=== PATIENT | female | born 1945 | race Caucasian/White ===

== ENCOUNTER → 2016-10-01 | Outpatient (CLI) | payer BC ==
[~2016-10-01] MED LIST: ALPHA LIPOIC ACID PO; CALC1TAB9 PO; COEN100C15 PO; LEVO125T7 PO; MULTTAB58 PO; SPIR25TA PO; UBIQ1CAP8 PO; krill oil PO
[2016-10-01 11:34] LABS: THYROID STIMULATING HORMONE 0.035 uIu/ml (0.300-4.500)
== END | disposition home or self-care (01) ==
LOC: C.LAB1850 09:51
PROVIDERS: ATTEND Nurse Practitioner Family
DX: E03.9 Hypothyroidism, unspecified (principal)

== ENCOUNTER → 2016-10-21 | Outpatient (CLI) | payer BC ==
[2016-10-21 09:46] LABS: BLOOD UREA NITROGEN 23 mg/dl (7-18); BUN/CREATININE RATIO 17.8 (10-20); CALCIUM 9.8 mg/dl (8.5-10.1); CARBON DIOXIDE 26 mmol/L (21-32); CHLORIDE 108 mmol/L (98-107); GLUCOSE 81 mg/dl (70-99); MAGNESIUM 2.2 mg/dl (1.8-2.4); POTASSIUM 3.8 mmol/L (3.5-5.1); SODIUM 143 mmol/L (136-145)
[2016-10-21 09:48] LABS: PHOSPHORUS 3.2 mg/dl (2.5-4.9)
[2016-10-21 10:03] LABS: URINE PROTIEN/CREAT RATIO 0.1 (0-0.2); URINE TOTAL PROTEIN 5.9 mg/dl (0-11.9)
[2016-10-21 10:10] LABS: URINE APPEARANCE CLEAR (CLEAR); URINE BILIRUBIN NEG (NEG); URINE COLOR YELLOW; URINE EPITHELIAL CELL AUTO 0-5 /lpf (0-5); URINE NITRITE NEG (NEG); URINE PH 6.5 (4.5-7.5); URINE SPECIFIC GRAVITY 1.007 (1.000-1.030); UROBILINOGEN NEG (NEG); ZZUR CULT IF INDIC CLEAN CATCH NO
[2016-10-21 10:11] LABS: MANUAL MICROSCOPIC REQUIRED? NO; REVIEW REQ? NO
== END | disposition home or self-care (01) ==
LOC: C.LAB1850 07:13
PROVIDERS: ATTEND Internal Medicine Nephrology
DX: N18.3 Chronic kidney disease, stage 3 (moderate) (principal)

== ENCOUNTER → 2016-12-10 | Outpatient (CLI) | payer BC | END | disposition home or self-care (01) | LOC: C.PAPS 11:35 | PROVIDERS: ATTEND Obstetrics & Gynecology | DX: Z01.419 Encounter for gynecological examination (general) (routine) without abnormal findings (principal) ==

== ENCOUNTER → 2017-01-09 | Outpatient (CLI) | payer BC ==
[2017-01-09 09:54] LABS: CALCIUM 9.8 mg/dl (8.5-10.1)
[2017-01-09 09:55] LABS: ALB/GLOB RATIO 1.3 (0.9-2); ALT/SGPT 22 U/L (12-78); AST/SGOT 15 U/L (15-37); BLOOD UREA NITROGEN 27 mg/dl (7-18); CARBON DIOXIDE 26 mmol/L (21-32); CHLORIDE 110 mmol/L (98-107); CHOLESTEROL 222 mg/dl (0-200); GLUCOSE 80 mg/dl (70-99); POTASSIUM 3.8 mmol/L (3.5-5.1); SODIUM 143 mmol/L (136-145); TRIGLYCERIDES 97 mg/dl (0-150); VERY LOW DENSITY LIPOPROT CALC 19 mg/dl
[2017-01-09 10:06] LABS: ALKALINE PHOSPHATASE 53 U/L (45-117); CHOLESTEROL/HDL RATIO 3.4; HDL CHOLESTEROL 65 mg/dl; LDL CHOLESTEROL CALCULATED 138 mg/dl; THYROID STIMULATING HORMONE 0.048 uIu/ml (0.300-4.500)
== END | disposition home or self-care (01) ==
LOC: C.LAB1850 07:53
PROVIDERS: ATTEND Nurse Practitioner Family
DX: E03.9 Hypothyroidism, unspecified (principal)

== ENCOUNTER → 2017-01-26 | Outpatient (CLI) | payer BC ==
--- NOTE | 2017-01-30 12:38 | CODING QUERY MEDICAL NECESSITY ---
CQSUPPORTING DIAGNOSIS NEEDED A supporting diagnosis is required for the test/procedure performed on this patient in order for us to be reimbursed by the patient's insurance. Please provide a supporting diagnosis for the following test/procedure listed below next to the test name along with your signature. *If there is no additional diagnosis for this patient that would support the following test/procedure please document that below next to the test/procedure. Test(s)/Procedure(s) that require a supporting diagnosis: DOS 01/26/17 [employer] [employer] STUDIES Provider Signature: Date: Thank you Sharon Hines [facility] Information Management Once completed, please kindly fax back to [phone] For questions please call [phone]
== END | disposition home or self-care (01) ==
LOC: C.MAMM 09:30
PROVIDERS: ATTEND Nurse Practitioner Family
DX: Z13.820 Encounter for screening for osteoporosis (principal); N18.3 Chronic kidney disease, stage 3 (moderate)

== ENCOUNTER → 2017-10-09 | Outpatient (CLI) | payer BC | END | disposition home or self-care (01) | LOC: C.PATHSPEC 13:12 | PROVIDERS: ATTEND Dermatology | DX: C44.619 Basal cell carcinoma of skin of left upper limb, including shoulder (principal); D04.72 Carcinoma in situ of skin of left lower limb, including hip ==

== ENCOUNTER → 2017-10-22 | Outpatient (CLI) | payer BC ==
[2017-10-22 09:42] LABS: BASO % 0.3 %; BASO ABS # 0.02 K/uL (0-0.2); EOS % 2.1 %; EOS ABS # 0.13 K/uL (0-0.5); HEMATOCRIT 45.1 % (37-47); HEMOGLOBIN 15.2 g/dL (12.0-16.0); IG# 0.01 K/uL (0.00-0.02); LYMPH % 41.7 %; LYMPH ABS # 2.53 K/uL (1.2-3.4); MEAN CELL VOLUME 90.7 fL (80-100); MEAN CORPUSCULAR HEMOGLOBIN 30.6 pg (25-34); MEAN CORPUSCULAR HGB CONC 33.7 g/dl (32-36); MEAN PLATELET VOLUME 11.6 fL (7.4-10.4); MONO % 7.8 %; MONO ABS # 0.47 K/uL (0.11-0.59); NEUT % 47.9 %; PLATELET COUNT 179 K/uL (130-400); RED CELL DISTRIBUTION WIDTH CV 13.2 % (11.5-14.5); RED CELL DISTRIBUTION WIDTH SD 42.8 fL (36.4-46.3); WHITE BLOOD COUNT 6.06 K/uL (4.8-10.8)
[2017-10-22 10:07] LABS: BLOOD UREA NITROGEN 19 mg/dl (7-18); CALCIUM 9.8 mg/dl (8.5-10.1); CARBON DIOXIDE 29 mmol/L (21-32); CREATININE 1.21 mg/dl (0.60-1.20); GLUCOSE 90 mg/dl (70-99); PHOSPHORUS 3.1 mg/dl (2.5-4.9); POTASSIUM 3.6 mmol/L (3.5-5.1); SODIUM 140 mmol/L (136-145)
== END | disposition home or self-care (01) ==
LOC: C.LAB1850 07:58
PROVIDERS: ATTEND Internal Medicine Nephrology
DX: N18.3 Chronic kidney disease, stage 3 (moderate) (principal)

== ENCOUNTER → 2017-10-28 | Outpatient (CLI) | payer BC | END | disposition home or self-care (01) | LOC: C.PATHSPEC 17:26 | PROVIDERS: ATTEND Plastic Surgery | DX: C44.729 Squamous cell carcinoma of skin of left lower limb, including hip (principal) ==

== ENCOUNTER → 2018-01-18 | Outpatient (CLI) | payer BC ==
[2018-01-18 10:03] LABS: ALBUMIN 4.1 gm/dl (3.4-5.0); ALT/SGPT 21 U/L (12-78); AST/SGOT 17 U/L (15-37); BLOOD UREA NITROGEN 20 mg/dl (7-18); CALCIUM 9.4 mg/dl (8.5-10.1); CARBON DIOXIDE 29 mmol/L (21-32); CHOLESTEROL 221 mg/dl (0-200); CREATININE 1.14 mg/dl (0.60-1.20); GLUCOSE 84 mg/dl (70-99); POTASSIUM 3.6 mmol/L (3.5-5.1); SODIUM 143 mmol/L (136-145)
[2018-01-18 10:07] LABS: ALKALINE PHOSPHATASE 53 U/L (45-117); LDL CHOLESTEROL CALCULATED 128 mg/dl; TOTAL PROTEIN 7.4 gm/dl (6.4-8.2)
== END | disposition home or self-care (01) ==
LOC: C.LAB1850 07:27
PROVIDERS: ATTEND Nurse Practitioner Family
DX: E03.9 Hypothyroidism, unspecified (principal); E78.00 Pure hypercholesterolemia, unspecified; N18.3 Chronic kidney disease, stage 3 (moderate)

== ENCOUNTER 2020-07-30 11:44 | Inpatient (IN) ==
[2020-07-30] MEDS ORDERED: SODIUM CHLORIDE 0.9% 500 ML IV ONE (12:22)
[2020-07-30] MEDS ORDERED: MAGNESIUM SULFATE / D5W 1 GM/100 ML BAG IV STA (12:22)
[2020-07-30] MEDS ORDERED: niCARdipine 25 MG in SODIUM CHLORIDE 0.9% 240 ML IV PRN (12:22)
[2020-07-30] MEDS ORDERED: OPTIRAY 320 125ml IV ONE (12:31)
[2020-07-30 12:33] LABS: Basophils # (auto) 0.01 K/uL (0-0.2); Basophils % (auto) 0.1 %; Eosinophils # (auto) 0.06 K/uL (0-0.5); Eosinophils % (auto) 0.9 %; Hematocrit (blood only) 45.1 % (37-47); Hemoglobin 15.1 g/dL (12.0-16.0); Immature Granulocytes # (auto) 0.01 K/uL (0.00-0.02); Immature Granulocytes % (auto) 0.1 %; Lymphocytes # (auto) 2.16 K/uL (1.2-3.4); Lymphocytes % (auto) 32.3 %; Mean Corpuscular Hemoglobin 31.1 pg (25-34); Mean Corpuscular Hgb Conc 33.5 g/dL (32-36); Mean Corpuscular Volume 92.8 fL (80-100); Mean Platelet Volume 11.1 fL (7.4-10.4); Monocytes # (auto) 0.47 K/uL (0.11-0.59); Neutrophils # (auto) 3.98 K/uL (1.4-6.5); Neutrophils % (auto) 59.6 %; Platelet Count 180 K/uL (130-400); RDW Coefficient of Variation 12.9 % (11.5-14.5); RDW Standard Deviation 43.8 fL (36.4-46.3); Red Blood Count 4.86 M/uL (4.2-5.4); White Blood Count 6.69 K/uL (4.8-10.8)
--- NOTE | 2020-07-30 12:39 | CT Scan Report ---
CT head/brain wo con CLINICAL HISTORY: 75 years-old Female with Stroke evaluation . Acute strokelike symptoms TECHNIQUE: Multiple axial CT images of the head were obtained without contrast. A dose lowering tech nique was utilized adhering to the principles of ALARA. CT DOSE: 1169.03 mGy.cm COMPARISON: CTA head neck of same day FINDINGS: No acute intracranial hemorrhage, midline shift, intracranial mass, hydrocephalus, territorial ischem ia or abnormal extra-axial collection. Confluent white matter hypodensities suggest chronic microvasc ular ischemic disease. The calvarium is intact. The paranasal sinuses, mastoid air cells, and middle ear cavities are clear . IMPRESSION: No acute intracranial abnormality. ACT 112: Negative or not required by law. The above report was generated using voice recognition software. It may contain grammatical, syntax o r spelling errors. Electronically signed by: Paul Rodriguez M.D. 07/30/2020 12:38 PM
[2020-07-30 12:48] LABS: Partial Thromboplastin Time 27.9 Seconds (21.0-31.0); Prothrombin Time 10.9 Seconds (9.0-12.0)
--- NOTE | 2020-07-30 12:52 | CT Scan Report ---
CT angio neck with con, CT angio head w con CLINICAL HISTORY: 75 years-old Female with Stroke evaluation. Acute strokelike symptoms COMPARISON STUDY: Head CT of same day, brain MRI 12/29/2008 TECHNIQUE: Following the IV administration of 120 mL of Optiray 320, CT angiogram of the neck was per formed from the aortic arch to the skull base. Images are reviewed in the axial, sagittal, and soriano l planes. 3-D MIPS images are created and assessed. IV contrast was administered without complication . All measurements were calculated based on NASCET criteria. A dose lowering technique was utilized adhering to the principles of ALARA. FINDINGS: The imaged opacified pulmonary arterial tree is unremarkable. Three-vessel morphology of the thoracic aortic arch. Patent innominate and imaged subclavian arteries. Patent common and internal carotid ar teries. There is mild mixed plaque of the left carotid bulb and proximal left ICA without high-grade stenosis. There is beaded irregularity with mild luminal narrowing involving the distal cervical segm ents of the left greater than right internal carotid arteries the level of C2. The internal carotid a rteries are otherwise unremarkable and widely patent. There is minimal fusiform dilation of the mid M 1 segment measuring 4 mm on image 89 series 5 without definite aneurysm identified. The bilateral mid dle and right anterior cerebral arteries are unremarkable. Hypoplastic left A1 segment, likely develo pmental. Codominant and widely patent vertebral arteries. There is tortuosity of the distal V2 segmen ts. The basilar artery is patent. There is mild luminal narrowing at the origin of the right P1 segme nt. The bilateral posterior cerebral arteries are otherwise widely patent. origin of the left p osterior cerebral artery. Cerebral venous sinuses are patent. No abnormal intracranial enhancement. Lung apices are clear. No pneumothorax. 1.5 cm heterogeneous nodule of the posterior left thyroid. Un remarkable soft tissues. No acute fracture. Indeterminate 1.0 cm sclerotic focus involves the posteri or left fifth rib. IMPRESSION: 1. No saccular aneurysm, high-grade stenosis, dissection or proximal branch occlusion. 2. Mild mixed plaque of the left carotid bulb results in less than 50% luminal narrowing. 3. Beaded irregularity with mild luminal narrowing involves the distal cervical segments of the left greater than right internal carotid arteries at the level of C2. 4. origin of the left posterior cerebral artery. ACT 112: Negative or not required by law. The above report was generated using voice recognition software. It may contain grammatical, syntax o r spelling errors. Electronically signed by: Paul Rodriguez M.D. 07/30/2020 12:51 PM
[2020-07-30 12:54] LABS: Alanine Aminotransferase 27 U/L (12-78); Albumin Level 4.1 gm/dl (3.4-5.0); Aspartate Aminotransferase 16 U/L (15-37); BUN Creatinine Ratio 15.7 (10-20); Blood Urea Nitrogen 23 mg/dl (7-18); Calcium 10.2 mg/dl (8.5-10.1); Carbon Dioxide 27 mmol/L (21-32); Chloride 110 mmol/L (98-107); Creatinine Clr Calc Pharmacy 33.2 ml/min; Est GFR (African American) 40.3; Est GFR (Non-African American) 34.8; Glucose 90 mg/dl (70-99); Magnesium 2.5 mg/dl (1.8-2.4); Potassium 3.7 mmol/L (3.5-5.1); Sodium 140 mmol/L (136-145)
[2020-07-30] MEDS ORDERED: ASPIRIN CHEW 324 MG PO STA (12:58)
[2020-07-30 12:59] LABS: Albumin Globulin Ratio 1.1 (0.9-2); Alkaline Phosphatase 59 U/L (45-117); Bilirubin,Total 0.6 mg/dl (0.2-1); Globulin 3.9 gm/dl (2.5-4.0); Troponin I < 0.015 ng/ml (0-0.045)
[2020-07-30] MEDS ORDERED: TPA for Stroke IV STA (13:13)
--- NOTE | 2020-07-30 13:13 | Emergency Department Note ---
History of Present Illness General Chief complaint: Visual Disturbance Stated complaint: losing vision in left eye Time Seen by Provider: 07/30/20 12:13 Source: patient, RN notes reviewed and old records reviewed Mode of arrival: ambulatory Limitations: no limitations History of Present Illness Provider complaint: left sided vision loss Onset (ago): hour(s) less than 1 Location: eyes Associated symptoms: + denies other symptoms This 75-year-old female who presents emergency department over concerns that she had a sudden loss of vision in her left eye. Patient [place] 1 hour ago when she had the sudden loss of vision. The patient reports she is on 2 blood pressure medications although she does not know the names of them. (Clonidine and spironolactone.) Patient reports she cannot see the periphery on the left side of her visual field. She denies any other issues including weakness to the arms and legs. Patient is concerned because she has a history of chronic kidney disease and does not want to have the IV dye for CTA of the head. Home Medications Medication Instructions Recorded Confirmed Type calcium citrate 250 mg 1 tab PO TID 02/24/19 07/30/20 History calcium-vitamin D3 5 mcg (200 unit) tablet krill oil 500 mg capsule 500 mg PO TID cap 02/24/19 07/30/20 History coenzyme Q10 100 mg capsule 100 mg PO QPM cap 05/10/19 07/30/20 History toqcsjjfkngs-Ax-ovcl-minerals 1 tab PO QAM tab 05/10/19 07/30/20 History spironolactone 25 mg tablet 25 mg PO BID #180 tab 03/21/20 07/30/20 Rx clonidine HCl 0.3 mg PO QPM 07/30/20 07/30/20 History levothyroxine 88 mcg PO QAM 07/30/20 07/30/20 History Allergies Allergy/AdvReac Type Severity Reaction Status Date / Time ciprofloxacin [From Cipro] Allergy Verified 07/30/20 14:16 clindamycin Allergy Rash Verified 07/30/20 14:16 codeine Allergy Irritabilit Verified 07/30/20 14:16 y latex Allergy Verified 07/30/20 14:16 bacitracin [From Polysporin] AdvReac Verified 07/30/20 14:16 Past Med/Surg History Medical History (Updated 07/30/20 @ 17:58 by Christopher Gore MD) Basal cell carcinoma Benign colonic polyp Benign secondary hypertension Hypercholesterolemia Hypothyroidism Postmenopausal bleeding Primary aldosteronism SNHL (sensorineural hearing loss) Stage III chronic kidney disease Surgical History History of colonoscopy with polypectomy History of excision of lesion (~2014) scalp-benign Family History Aunt Breast cancer paternal aunt Ovarian cancer maternal aunt Uncle Colorectal cancer maternal uncle Brother Hemochromatosis Sister Ovarian cancer Mother Stroke Denies family history of Prostate cancer Myocardial infarction Social History Smoking Status: Never smoker Second Hand Exposure: No; Hx Alcohol Use: No Hx Substance Use: No Preferred Language: Turkish Communication Ability: Effective marital status: Current Living Situation: Spouse current occupational status: retired Feels Safe at Home: Yes Childhood Exposure to Second-Hand Smoke: No Dental Care, Regularly: Yes Physical Activity Frequency: 3-4 Times per Week Seatbelt Use: always Sunscreen Use: Yes Review of Systems A total of 10 systems reviewed and were otherwise negative Physical Exam Vital Signs Vital Signs - 24 hr 07/30/20 11:49 07/30/20 12:15 07/30/20 12:40 Temperature 36.5 C Temperature Source Oral Pulse Rate 74 72 75 Pulse Rate from SpO2 Sensor 72 75 Respiratory Rate 20 21 16 Respiratory Effort / Characteristics Non-Labored Spontaneous Respiratory Depth Normal Blood Pressure 190/120 H Blood Pressure [Left Arm] Blood Pressure Mean 143 Blood Pressure Mean [Left Arm] Blood Pressure Position Sitting Blood Pressure Position [Left Arm] Pulse Oximetry 98 100 99 Oxygen Delivery Method Room Air Room Air Room Air Sepsis Recent Fever Within 48 Hours No Sepsis New/Unexplained Change in Mental Status N/A Sepsis Action Taken by Nursing No Action Required 07/30/20 12:49 07/30/20 12:50 07/30/20 13:00 Temperature Temperature Source Pulse Rate 86 79 72 Pulse Rate from SpO2 Sensor 87 78 71 Respiratory Rate 21 21 20 Respiratory Effort / Characteristics Respiratory Depth Blood Pressure 217/102 H Blood Pressure [Left Arm] Blood Pressure Mean 157 Blood Pressure Mean [Left Arm] Blood Pressure Position Blood Pressure Position [Left Arm] Pulse Oximetry 99 98 99 Oxygen Delivery Method Room Air Room Air Room Air Sepsis Recent Fever Within 48 Hours Sepsis New/Unexplained Change in Mental Status Sepsis Action Taken by Nursing 07/30/20 13:01 07/30/20 13:11 07/30/20 13:14 Temperature Temperature Source Pulse Rate 72 84 78 Pulse Rate from SpO2 Sensor 71 84 79 Respiratory Rate 22 22 23 Respiratory Effort / Characteristics Respiratory Depth Blood Pressure 190/103 H 196/90 H 183/104 H Blood Pressure [Left Arm] Blood Pressure Mean 143 141 121 Blood Pressure Mean [Left Arm] Blood Pressure Position Blood Pressure Position [Left Arm] Pulse Oximetry 98 98 97 Oxygen Delivery Method Room Air Sepsis Recent Fever Within 48 Hours Sepsis New/Unexplained Change in Mental Status Sepsis Action Taken by Nursing 07/30/20 13:15 07/30/20 13:17 07/30/20 13:20 Temperature Temperature Source Pulse Rate 76 76 77 Pulse Rate from SpO2 Sensor 76 76 77 Respiratory Rate 22 20 19 Respiratory Effort / Characteristics Respiratory Depth Blood Pressure 176/103 H 162/98 H Blood Pressure [Left Arm] Blood Pressure Mean 116 120 Blood Pressure Mean [Left Arm] Blood Pressure Position Blood Pressure Position [Left Arm] Pulse Oximetry 98 97 98 Oxygen Delivery Method Room Air Sepsis Recent Fever Within 48 Hours Sepsis New/Unexplained Change in Mental Status Sepsis Action Taken by Nursing 07/30/20 13:25 07/30/20 13:33 07/30/20 13:35 Temperature Temperature Source Pulse Rate 81 87 79 Pulse Rate from SpO2 Sensor 82 Respiratory Rate 22 23 24 Respiratory Effort / Characteristics Respiratory Depth Blood Pressure 167/93 H 159/102 H 173/93 H Blood Pressure [Left Arm] Blood Pressure Mean 123 131 136 Blood Pressure Mean [Left Arm] Blood Pressure Position Blood Pressure Position [Left Arm] Pulse Oximetry 99 Oxygen Delivery Method Room Air Room Air Room Air Sepsis Recent Fever Within 48 Hours Sepsis New/Unexplained Change in Mental Status Sepsis Action Taken by Nursing 07/30/20 13:37 07/30/20 13:45 07/30/20 13:48 Temperature Temperature Source Pulse Rate 79 77 Pulse Rate from SpO2 Sensor Respiratory Rate 24 26 H Respiratory Effort / Characteristics Respiratory Depth Blood Pressure 159/100 H Blood Pressure [Left Arm] 149/75 H Blood Pressure Mean 108 Blood Pressure Mean [Left Arm] 99 Blood Pressure Position Blood Pressure Position [Left Arm] Lying Pulse Oximetry Oxygen Delivery Method Room Air Room Air Sepsis Recent Fever Within 48 Hours Sepsis New/Unexplained Change in Mental Status Sepsis Action Taken by Nursing 07/30/20 13:51 07/30/20 14:00 07/30/20 14:02 Temperature Temperature Source Pulse Rate 80 76 Pulse Rate from SpO2 Sensor Respiratory Rate 19 17 Respiratory Effort / Characteristics Respiratory Depth Blood Pressure 149/75 H 142/84 H Blood Pressure [Left Arm] 163/104 H Blood Pressure Mean 109 110 Blood Pressure Mean [Left Arm] 123 Blood Pressure Position Blood Pressure Position [Left Arm] Pulse Oximetry Oxygen Delivery Method Room Air Room Air Sepsis Recent Fever Within 48 Hours Sepsis New/Unexplained Change in Mental Status Sepsis Action Taken by Nursing 07/30/20 14:04 07/30/20 14:10 07/30/20 14:15 Temperature Temperature Source Pulse Rate 81 85 83 Pulse Rate from SpO2 Sensor Respiratory Rate 21 19 20 Respiratory Effort / Characteristics Respiratory Depth Blood Pressure 163/104 H 171/79 H Blood Pressure [Left Arm] Blood Pressure Mean 151 99 Blood Pressure Mean [Left Arm] Blood Pressure Position Blood Pressure Position [Left Arm] Pulse Oximetry Oxygen Delivery Method Room Air Room Air Room Air Sepsis Recent Fever Within 48 Hours Sepsis New/Unexplained Change in Mental Status Sepsis Action Taken by Nursing 07/30/20 14:22 07/30/20 14:30 07/30/20 14:33 Temperature Temperature Source Pulse Rate Pulse Rate from SpO2 Sensor Respiratory Rate 23 20 Respiratory Effort / Characteristics Respiratory Depth Blood Pressure 141/90 H 142/75 H Blood Pressure [Left Arm] 141/90 H 155/79 H Blood Pressure Mean 115 98 Blood Pressure Mean [Left Arm] 107 104 Blood Pressure Position Blood Pressure Position [Left Arm] Lying Lying Pulse Oximetry Oxygen Delivery Method Room Air Room Air Sepsis Recent Fever Within 48 Hours Sepsis New/Unexplained Change in Mental Status Sepsis Action Taken by Nursing 07/30/20 14:34 07/30/20 14:40 07/30/20 14:44 Temperature Temperature Source Pulse Rate Pulse Rate from SpO2 Sensor Respiratory Rate 20 19 29 H Respiratory Effort / Characteristics Non-Labored Respiratory Depth Blood Pressure 155/79 H 152/80 H Blood Pressure [Left Arm] 151/76 H Blood Pressure Mean 102 103 Blood Pressure Mean [Left Arm] 101 Blood Pressure Position Blood Pressure Position [Left Arm] Lying Pulse Oximetry 98 Oxygen Delivery Method Room Air Room Air Sepsis Recent Fever Within 48 Hours Sepsis New/Unexplained Change in Mental Status Sepsis Action Taken by Nursing 07/30/20 14:45 07/30/20 14:46 07/30/20 14:50 Temperature Temperature Source Pulse Rate Pulse Rate from SpO2 Sensor 78 Respiratory Rate 20 19 26 H Respiratory Effort / Characteristics Respiratory Depth Blood Pressure 151/76 H 141/75 H Blood Pressure [Left Arm] Blood Pressure Mean 94 101 Blood Pressure Mean [Left Arm] Blood Pressure Position Blood Pressure Position [Left Arm] Pulse Oximetry 98 Oxygen Delivery Method Room Air Room Air Room Air Sepsis Recent Fever Within 48 Hours Sepsis New/Unexplained Change in Mental Status Sepsis Action Taken by Nursing VITAL SIGNS - Vital signs and nursing notes were reviewed. GENERAL - 75-year-old female appearing stated age who is in no acute distress. Communicates well with provider and answers questions appropriately. SKIN - Without rashes. HEAD - NC/AT. EYES - PERRL with EOMI bilaterally. Sclera anicteric. Palpebral conjunctiva pink and moist with no injection noted. EARS - No deformities of external structures noted on gross examination bilaterally. No pain elicited with palpation of the tragus bilaterally. External auditory canals without discharge or otorrhea. Tympanic membranes pearly saleem without retraction or bulging. No fluid or purulent material visualized behind the TM. Handle of malleus, umbo, cone of light, pars tensa/flaccid all easily visualized. NOSE - Midline and without cyanosis. No epistaxis or purulent drainage noted. Septum midline without deviation or septal hematoma noted. MOUTH/OROPHARYNX - Without perioral cyanosis. Buccal mucosa pink and moist and without leukoplakia. Tongue midline with equal elevation of palate bilaterally. No tonsillar hypertrophy, erythema, or exudates noted. dentition noted. NECK - Neck with FROM. Supple to palpation. lymphadenopathy noted. No nuchal rigidity. LUNGS - Chest wall symmetric without accessory muscle use, intercostals retractions, or central cyanosis. Normal vesicular breath sounds CTA B/L. No wheezes, rales, or rhonchi appreciated. CARDIAC - RRR with S1/S2. No murmur, rubs, or gallops appreciated. ABDOMEN - Abdominal contour without pulsations or visible masses. BS normoactive all four quadrants. No tenderness, palpable masses, hepatosplenomegaly, or ascites noted. EXTREMITIES - No clubbing or peripheral cyanosis. No pretibial edema present. +3/5 radial, posterior tibial, and dorsalis pedis pulses palpated throughout. +5/5 strength noted in UE/LE bilaterally. NEUROLOGIC - Cranial nerves II through XII grossly intact. Sensory intact to light touch throughout. Patellar reflexes +2/4. PSYCH - A&Ox3 and cooperates fully with examiner. Pt is very pleasant and interacts well with examiner. Course Administered Medications Discontinued Medications Alteplase, Recombinant (Tpa For Stroke) 1 ea IV NOW STA; Protocol Stop: 07/30/20 13:14 Last Admin: 07/30/20 16:43 Dose: Not Given Documented by: [id number] Aspirin (Aspirin Chew 324 Mg) 324 mg PO NOW STA Stop: 07/30/20 12:59 Last Admin: 07/30/20 14:52 Dose: Not Given Documented by: [id number] Magnesium Sulfate/Dextrose (Magnesium Sulfate / D5w) 1 gm in 100 mls @ 100 mls/hr IV NOW STA Stop: 07/30/20 13:21 Last Admin: 07/30/20 14:52 Dose: Not Given Documented by: [id number] Nicardipine HCl 25 mg/ Sodium (Chloride) 250 mls @ 50 mls/hr IV .Q5H PRN; Protocol PRN Reason: SBP above 185 or DBP above 110 Stop: 08/29/20 12:21 Last Admin: 07/30/20 13:07 Dose: 5 mg/hr, 50 mls/hr Documented by: [id number] Cosigned by: [id number] Sodium Chloride (Nss) 500 mls @ 999 mls/hr IV .Q31M ONE Stop: 07/30/20 12:52 Last Infusion: 07/30/20 14:45 Dose: 0 mls/hr Documented by: [id number] Admin: 07/30/20 13:05 Dose: 999 mls/hr Documented by: [id number] Alteplase, Recombinant 6.4 mg/ (Syringe) 6.4 mls @ 6.4 mls/min IV ONCE ONE Stop: 07/30/20 13:24 Last Admin: 07/30/20 13:33 Dose: 6.4 mls/min Documented by: [id number] Cosigned by: [id number] Alteplase, Recombinant 57 mg/ (EMPTY BAG) 57 mls @ 57 mls/hr IV ONCE ONE Stop: 07/30/20 13:25 Last Infusion: 07/30/20 14:44 Dose: 0 mls/hr Documented by: [id number] Cosigned by: [id number] Admin: 07/30/20 13:34 Dose: 57 mls/hr Documented by: [id number] Cosigned by: [id number] Ioversol (Optiray 320 125ml) 120 ml IV ONCE ONE Stop: 07/30/20 12:32 Last Admin: 07/30/20 12:31 Dose: 120 ml Documented by: [id number] Critical Care Time I have personally spent greater than 90 minutes of critical care time in the direct management of this patient. This includes bedside care, interpretation of diagnostic studies, and testing, discussion with consultants, patient, and family members, and other required patient management activities. This 90 minutes is in excess of all separately billable procedures. Medical Decision Making Differential Diagnosis Infection, dehydration, metabolic abnormality, hypo/hyperglycemia, electrolyte disturbance, anemia, hypoxia, cardiac sources, intracerebral event, toxicologic, neurologic, as well as other pathologies. Medical Records Attestation: I reviewed the patient's medical records. Home Medications Current Medication List: was personally reviewed by me Laboratory Data Attestation: I reviewed the patient's lab results. Result diagrams: 07/30/20 12:15 07/30/20 12:15 Lab Results 07/30/20 07/30/20 07/30/20 Range/Units 12:15 12:15 12:15 WBC 6.69 (4.8-10.8) K/uL RBC 4.86 (4.2-5.4) M/uL Hgb 15.1 (12.0-16.0) g/dL Hct 45.1 (37-47) % MCV 92.8 (80-100) fL MCH 31.1 (25-34) pg MCHC 33.5 (32-36) g/dL RDW Std Deviation 43.8 (36.4-46.3) fL RDW Coeff of Beth 12.9 (11.5-14.5) % Plt Count 180 (130-400) K/uL MPV 11.1 H (7.4-10.4) fL Immature Gran % (Auto) 0.1 % Neut % (Auto) 59.6 % Lymph % (Auto) 32.3 % Eagle % (Auto) 7.0 % Eos % (Auto) 0.9 % Baso % (Auto) 0.1 % Neut # (Auto) 3.98 (1.4-6.5) K/uL Lymph # (Auto) 2.16 (1.2-3.4) K/uL Eagle # (Auto) 0.47 (0.11-0.59) K/uL Eos # (Auto) 0.06 (0-0.5) K/uL Baso # (Auto) 0.01 (0-0.2) K/uL Immature Gran # (Auto) 0.01 (0.00-0.02) K/uL PT 10.9 (9.0-12.0) Seconds INR 1.0 (0.9-1.1) APTT 27.9 (21.0-31.0) Seconds PTT Ratio 1.0 Sodium 140 (136-145) mmol/L Potassium 3.7 (3.5-5.1) mmol/L Chloride 110 H (98-107) mmol/L Carbon Dioxide 27 (21-32) mmol/L Anion Gap 3.0 (3-11) BUN 23 H (7-18) mg/dl Creatinine 1.48 H (0.6-1.2) mg/dl Est Cr Clr Drug Dosing 33.2 ml/min Est GFR ( Amer) 40.3 Est GFR (Non-Af Amer) 34.8 BUN/Creatinine Ratio 15.7 (10-20) Glucose 90 (70-99) mg/dl Calcium 10.2 H (8.5-10.1) mg/dl Magnesium 2.5 H (1.8-2.4) mg/dl Total Bilirubin 0.6 (0.2-1) mg/dl AST 16 (15-37) U/L ALT 27 (12-78) U/L Alkaline Phosphatase 59 (45-117) U/L Troponin I < 0.015 (0-0.045) ng/ml Total Protein 8.0 (6.4-8.2) gm/dl Albumin 4.1 (3.4-5.0) gm/dl Globulin 3.9 (2.5-4.0) gm/dl Albumin/Globulin Ratio 1.1 (0.9-2) COVID-19 Eval Order SARS-CoV-2, RNA, NAAT (NEGATIVE) 07/30/20 07/30/20 Range/Units 13:26 13:26 WBC (4.8-10.8) K/uL RBC (4.2-5.4) M/uL Hgb (12.0-16.0) g/dL Hct (37-47) % MCV (80-100) fL MCH (25-34) pg MCHC (32-36) g/dL RDW Std Deviation (36.4-46.3) fL RDW Coeff of Beth (11.5-14.5) % Plt Count (130-400) K/uL MPV (7.4-10.4) fL Immature Gran % (Auto) % Neut % (Auto) % Lymph % (Auto) % Eagle % (Auto) % Eos % (Auto) % Baso % (Auto) % Neut # (Auto) (1.4-6.5) K/uL Lymph # (Auto) (1.2-3.4) K/uL Eagle # (Auto) (0.11-0.59) K/uL Eos # (Auto) (0-0.5) K/uL Baso # (Auto) (0-0.2) K/uL Immature Gran # (Auto) (0.00-0.02) K/uL PT (9.0-12.0) Seconds INR (0.9-1.1) APTT (21.0-31.0) Seconds PTT Ratio Sodium (136-145) mmol/L Potassium (3.5-5.1) mmol/L Chloride (98-107) mmol/L Carbon Dioxide (21-32) mmol/L Anion Gap (3-11) BUN (7-18) mg/dl Creatinine (0.6-1.2) mg/dl Est Cr Clr Drug Dosing ml/min Est GFR ( Amer) Est GFR (Non-Af Amer) BUN/Creatinine Ratio (10-20) Glucose (70-99) mg/dl Calcium (8.5-10.1) mg/dl Magnesium (1.8-2.4) mg/dl Total Bilirubin (0.2-1) mg/dl AST (15-37) U/L ALT (12-78) U/L Alkaline Phosphatase (45-117) U/L Troponin I (0-0.045) ng/ml Total Protein (6.4-8.2) gm/dl Albumin (3.4-5.0) gm/dl Globulin (2.5-4.0) gm/dl Albumin/Globulin Ratio (0.9-2) COVID-19 Eval Order [facility] SARS-CoV-2, RNA, NAAT NEGATIVE (NEGATIVE) Imaging Data Radiologist's Impression: [place], [place] [phone] CT Scan Report Patient: OMID DOWNS Admit Date: 07/30/20 MR#: [id number] Address1: [address] Acct ID:[id number] Address2: Date: 1945 [facility] Zip: [place] [address] Age: 75 Location: ED Sex: F Room/Bed: Att Phy: Diagnosis: losing vision in left eye Delicia Phy: Esau Funez III, PACO Service Date: 07/30/20 Fam Phy: Interpreting Phy: Jatin Rodriguez Admit Phy: Ordering Phy: Christopher Gore MD cc: ~ CT angio neck with con, CT angio head w con CLINICAL HISTORY: 75 years-old Female with Stroke evaluation. Acute strokelike symptoms COMPARISON STUDY: Head CT of same day, brain MRI 12/29/2008 TECHNIQUE: Following the IV administration of 120 mL of Optiray 320, CT angiogram of the neck was performed from the aortic arch to the skull base. Images are reviewed in the axial, sagittal, and coronal planes. 3-D MIPS images are created and assessed. IV contrast was administered without complication. All measurements were calculated based on NASCET criteria. A dose lowering technique was utilized adhering to the principles of ALARA. FINDINGS: The imaged opacified pulmonary arterial tree is unremarkable. Three-vessel morphology of the thoracic aortic arch. Patent innominate and imaged subclavian arteries. Patent common and internal carotid arteries. There is mild mixed plaque of the left carotid bulb and proximal left ICA without high-grade stenosis. There is beaded irregularity with mild luminal narrowing involving the distal cervical segments of the left greater than right internal carotid arteries the level of C2. The internal carotid arteries are otherwise unremarkable and widely patent. There is minimal fusiform dilation of the mid M1 segment measuring 4 mm on image 89 series 5 without definite aneurysm identified. The bilateral middle and right anterior cerebral arteries are unremarkable. Hypoplastic left A1 segment, likely developmental. Codominant and widely patent vertebral arteries. There is tortuosity of the distal V2 segments. The basilar artery is patent. There is mild luminal narrowing at the origin of the right P1 segment. The bilateral posterior cerebral arteries are otherwise widely patent. origin of the left posterior cerebral artery. Cerebral venous sinuses are patent. No abnormal intracranial enhancement. Lung apices are clear. No pneumothorax. 1.5 cm heterogeneous nodule of the posterior left thyroid. Unremarkable soft tissues. No acute fracture. Indeterminate 1.0 cm sclerotic focus involves the posterior left fifth rib. IMPRESSION: 1. No saccular aneurysm, high-grade stenosis, dissection or proximal branch occlusion. 2. Mild mixed plaque of the left carotid bulb results in less than 50% luminal narrowing. 3. Beaded irregularity with mild luminal narrowing involves the distal cervical segments of the left greater than right internal carotid arteries at the level of C2. 4. origin of the left posterior cerebral artery. ACT 112: Negative or not required by law. The above report was generated using voice recognition software. It may contain grammatical, syntax or spelling errors. Electronically signed by: Paul Rodriguez M.D. 07/30/2020 12:51 PM Dictated: 07/30/20 1238 Transcribed: 07/30/20 1238 [place], [place] [phone] CT Scan Report Patient: OMID DOWNS Admit Date: 07/30/20 MR#: [id number] Address1: [address] [place] [address] Acct ID:[id number] Address2: Date: 1945 [facility] Zip: [place] [address] Age: 75 Location: ED Sex: F Room/Bed: Att Phy: Diagnosis: losing vision in left eye Delicia Phy: Esau Funez III, CRNP Service Date: 07/30/20 [facility] Phy: Interpreting Phy: Jatin Rodriguez Admit Phy: Ordering Phy: Christopher Gore MD cc: ~ CT head/brain wo con CLINICAL HISTORY: 75 years-old Female with Stroke evaluation . Acute strokelike symptoms TECHNIQUE: Multiple axial CT images of the head were obtained without contrast. A dose lowering technique was utilized adhering to the principles of ALARA. CT DOSE: 1169.03 mGy.cm COMPARISON: CTA head neck of same day FINDINGS: No acute intracranial hemorrhage, midline shift, intracranial mass, hydrocephalus, territorial ischemia or abnormal extra-axial collection. Confluent white matter hypodensities suggest chronic microvascular ischemic disease. The calvarium is intact. The paranasal sinuses, mastoid air cells, and middle ear cavities are clear. IMPRESSION: No acute intracranial abnormality. ACT 112: Negative or not required by law. The above report was generated using voice recognition software. It may contain grammatical, syntax or spelling errors. Electronically signed by: Paul Rodriguez M.D. 07/30/2020 12:38 PM Dictated: 07/30/20 1235 Transcribed: 07/30/20 1235 [facility], [phone] Magnetic Resonance Report Patient: OMID DOWNS Date: 07/30/20#: [id number]: [address] D[address] ID:[id number]: Date: 1945City Zip: [place], [place] [address]Hxy: 75Location: 1ESex: FRoom/Bed: [id number] Phy: Shalonda Salgado MDDiagnosis: STROKEPri Phy: Esau Funez, III, CRNPService Date: 07/30/20Fam Phy:Interpreting Phy: Jatin RodriguezAdmit Phy: Deniz Quinn MD Ordering Phy: Christopher Gore MD cc: ~ MR brain wo con HISTORY: 75 years-old Female Pt c/o left sided neglect acute strokelike symptoms COMPARISON: Head CT and CTA head studies of same day, brain MRI 12/29/2008. TECHNIQUE: Multiplanar multisequence MRI of the brain was obtained without the use of IV contrast. FINDINGS: [employer] Consultant localizer images demonstrate no gross extracranial abnormality. Restricted diffusion of the right occipital lobe measures up to 4.0 cm in length with decreased signal on the ADC map. There is no significant T2/FLAIR prolongation within this distribution. No significant midline shift or mass effect. Midline structures including the corpus callosum, brainstem, optic chiasm, pituitary and pineal glands appear unremarkable on the sagittal T1 series. No cerebellar tonsillar herniation. No acute intracranial hemorrhage, midline shift, abnormal extra-axial collection, hydrocephalus or intracranial mass. No pathologic blooming artifact on the T2 star series. Mild age-related involutional changes. Extensive T2/FLAIR hyperintensities are noted throughout the white matter of the bilateral cerebral hemispheres. Cerebral venous sinuses and major arterial flow voids at the level of the skull base appear patent. The orbits, skull and soft tissues are unremarkable. Mastoid air cells and paranasal sinuses are clear. IMPRESSION: 1. Moderate sized acute versus subacute infarct of the right occipital lobe. 2. No midline shift or acute intracranial hemorrhage. 3. Extensive T2/FLAIR hyperintensities throughout the white matter are suggestive of chronic microvascular ischemic disease. ACT 112: Negative or not required by law. The above report was generated using voice recognition software. It may contain grammatical, syntax or spelling errors. Electronically signed by: Paul Rodriguez M.D. 07/30/2020 4:49 PM Dictated: 07/30/201642Transcribed: 07/30/201642 ECG Data Attestation: I personally reviewed and interpreted this ECG as follows: Indication: + altered mental status Rate (beats per minute): 70 Rhythm: + normal sinus ECG Intervals/blocks: + Incomplete right bundle branch block ECG [place]: + Left axis deviation ECG ST segments: + ST depression (Lateral) and + T-wave inversions (Inferior) Comparison ECG Date: from (07/27/2015) Change: the following changes noted (ST now depressed in lateral leads) Blood Pressure Blood Pressure Findings: Elevated blood pressure MDM Narrative This 75-year-old female who presents to the emergency department with loss of left side of her vision. In addition the patient also appears to have left- sided hemineglect on my physical examination due to these findings a stroke alert was immediately initiated. There was some delay in the administration of a CTA as the patient is concerned about her kidneys. I did consult the lacquer sizer on-call Dr. Nicolas who reaffirmed that the benefits of a CTA at this point outweigh the risks to the patient's kidneys in addition the patient was also hydrated with a normal saline bolus. The patient arrives with her blood pressure grossly elevated. There was a delay in administering TPA as the patient's blood pressure was grossly elevated. She needed to be placed on a nicardipine drip to bring the patient's blood pressure down. She was also given magnesium here in the emergency department. There was a further delay in administering of TPA because the patient herself is reluctant to receive it even though it was recommended by both myself as well as the neurologist. I did discuss the case with the hospitalist service who admitted the patient. Patient was seen and evaluated as above in room B12. Review was performed of nursing notes and vital signs. I did review pertinent previous visits and patient history. After obtaining a thorough history and physical examination the above work up was performed. An order was placed for continuous cardiac monitoring. The monitor shows a rate of 77 with Normal SInus rhythm. The patient was evaluated during the global COVID-19 pandemic, and that diagnosis was suspected/considered upon their initial presentation. Their evaluation, treatment and testing was consistent with current guidelines for patients who present with complaints or symptoms that may be related to COVID- 19. Impression & Plan Vision loss, CVA (cerebral vascular accident), Hypertension Discharge Plan Visit Data Chief Complaint: Visual Disturbance Stated Complaint: losing vision in left eye ED Provider: Christopher Gore Discharge Problem: Vision loss, CVA (cerebral vascular accident), Hypertension Patient Disposition: Admitted As Inpatient Discharge Instructions Interventions: ED Discharge Assessment Last Done: 07/30/20 15:53 Discharge Problem: CVA (cerebral vascular accident) Qualifiers: CVA mechanism: unspecified Qualified Code(s): I63.9 - Cerebral infarction, unspecified Hypertension Qualifiers: Hypertension type: unspecified Qualified Code(s): I10 - Essential (primary) hypertension
[2020-07-30] MEDS ORDERED: ALTEPLASE BOLUS IV ONE (13:23)
[2020-07-30] MEDS ORDERED: PRIMARY PLUMSET, PE LINED TUBING, 113 IN, NON-DEHP (2260-0500) IV ONE (13:24)
[2020-07-30] MEDS ORDERED: RECOMBINANT IV ONE (13:24)
[2020-07-30] MEDS ORDERED: ALTEPLASE IV ONE (13:24)
--- NOTE | 2020-07-30 13:37 | Electrocardiogram Report ---
Test Reason : Blood Pressure : / mmHG Vent. Rate : 070 BPM Atrial Rate : 070 BPM P-R Int : 140 ms QRS Dur : 104 ms QT Int : 396 ms P-R-T Axes : 048 -32 -24 degrees QTc Int : 427 ms Normal sinus rhythm Possible Left atrial enlargement Left axis deviation Incomplete right bundle branch block Left ventricular hypertrophy Nonspecific ST and T wave abnormality Abnormal ECG When compared with ECG of 27-JUL-2015 16:24, ST now depressed in Lateral leads T wave inversion more evident in Inferior leads Nonspecific T wave abnormality now evident in Lateral leads Confirmed by Juan Govea ([id number]) on 07/30/2020 1:37:31 PM Referred By: REFERRED SELF Confirmed By:Juan Govea
--- NOTE | 2020-07-30 14:16 | History & Physical Report ---
Date of Service July 30, 2020 Assessment & Plan (1) Vision loss: Maria R Truong is a 75yo F with a PMHx of primary hyperaldosteronism and HTN, no tobacco use, and CKD who presents with an acute episode of vision loss treated as a code stroke and treated with TPA L Peripheral Vision Loss, Stroke Alert, Post-TPA Patient presented with left peripheral vision loss and disorientation, improving post TPA. No weakness, sensory deficit, or other focal neurologic deficit on admitting exam. 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 s/p 324mg ASA on admit. - ICU electrolyte protocol. No gross derangements on admit. Hypertension, primary hyperaldosteronism On nicardipine drip, oral antihypertensives held BMP daily BP First 24 hours of 180/105 for TPA protocol Stage III chronic kidney disease Baseline creatinine 1.21.5 Patient at creatinine 1.48 BMP daily Covid assessment: Patient was with her who was getting a Covid test due to an exposure, was asymptomatic. Patient denies any symptoms of Covid. Covid test on ER admission was negative. DVT prophylaxis: SCDs. Pharmacal prophylaxis contraindicated in the setting of TPA administration. Diet: N.p.o. pending protocol speech eval. Normosol 120 cc/h Disposition: ICU CODE STATUS: Full code, discussed with patient (2) Benign secondary hypertension: (3) Hypercholesterolemia: (4) SNHL (sensorineural hearing loss): (5) Stage III chronic kidney disease: (6) Hypothyroidism: (7) Hyperaldosteronism: History of Present Illness Primary Care Provider: Esau Funez, III, KITCHEN MECHANIC Maria R was walking with her at the mall to get a COVID test after he was exposed on . They were walking in the mall when she got blurry vision on her L peripheral vision and felt disoriented. She returned home and found she was still having trouble seeing finger movements in her L peripheral vision. She came to the hospital with her because she was concerned by the sudden change. She also endorses that she felt dazed and confused/disoriented during the episode. She reports she could see the stores at the mall, but couldn't remember where she was and on the way home could see signs but couldn't make out where she was. No trouble speaking, no weakness. No chagne in taste or smell.Deficit started approximately 12:00 PM. Received TPA at 1333 hrs.Denies chest pain, chest pressure, palpitations, syncope, presyncope, numbness, tingling, headache, focal weakness. Currently she feels her L periopheal vision still has some reduced scope. She longer feels disoriented, but notes she 'isn't going anywhere.' Medical History: Reviewed Medications: Reviewed with pharmacy in room. Pt is a somewhat poor historian of her medications at time of assessment, can recognize names but cannot recall their names at baseline. Took AM medications today. SHx: Reviewed Allergies: Reviewed, cipro allergy added FHx: She reports her father passed of a dye induced kidney injury. Social: No tobacco product, EtoH use, or recreational drug use. Lives at home with , has adult children who are out of the house. No sick contacts. CODE Status:Full code, discussed with patient Allergies Allergy/AdvReac Type Severity Reaction Status Date / Time ciprofloxacin [From Cipro] Allergy Verified 07/30/20 14:16 clindamycin Allergy Rash Verified 07/30/20 14:16 codeine Allergy Irritabilit Verified 07/30/20 14:16 y latex Allergy Verified 07/30/20 14:16 bacitracin [From Polysporin] AdvReac Verified 07/30/20 14:16 Home Medications Medication Instructions Recorded Confirmed Type calcium citrate 250 mg 1 tab PO TID 02/24/19 07/30/20 History calcium-vitamin D3 5 mcg (200 unit) tablet krill oil 500 mg capsule 500 mg PO TID cap 02/24/19 07/30/20 History coenzyme Q10 100 mg capsule 100 mg PO QPM cap 05/10/19 07/30/20 History [id number]-minerals 1 tab PO QAM tab 05/10/19 07/30/20 History spironolactone 25 mg tablet 25 mg PO BID #180 tab 03/21/20 07/30/20 Rx clonidine HCl 0.3 mg PO QPM 07/30/20 07/30/20 History levothyroxine 88 mcg PO QAM 07/30/20 07/30/20 History Past Med/Surg History Medical History (Updated 07/30/20 @ 14:19 by Deniz Quinn MD) Basal cell carcinoma Benign colonic polyp Benign secondary hypertension Hypercholesterolemia Hypothyroidism Postmenopausal bleeding Primary aldosteronism SNHL (sensorineural hearing loss) Stage III chronic kidney disease Surgical History History of colonoscopy with polypectomy History of excision of lesion (~2014) scalp-benign Family History Aunt Breast cancer paternal aunt Ovarian cancer maternal aunt Uncle Colorectal cancer maternal uncle Brother Hemochromatosis Sister Ovarian cancer Mother Stroke Denies family history of Prostate cancer Myocardial infarction Social History Smoking Status: Never smoker Second Hand Exposure: No; Hx Alcohol Use: No Hx Substance Use: No Preferred Language: Lithuanian Communication Ability: Effective marital status: Current Living Situation: Spouse current occupational status: retired Feels Safe at Home: Yes Childhood Exposure to Second-Hand Smoke: No Dental Care, Regularly: Yes Physical Activity Frequency: 3-4 Times per Week Seatbelt Use: always Sunscreen Use: Yes Review of Systems Review of Systems: Constitutional: Denies fever, malaise, weight change Eyes: See HPI ENT: Denies ear pain, sore throat, sinus pain Cardiovascular: Denies Chest pain, chest pressure, palpitations, extremity swelling Respiratory: Denies shortness of breath, cough, sputum production, difficulty breathing Gastrointestinal: Denies abdominal pain, nausea, vomiting, constipation, diarrh ea Genitourinary: Denies pain with urination, urinary urgency, urinary frequency Musculoskeletal: Denies weakness, muscle aches/pain, joint aches/pain Integumentary:Denies rash, lesions, bruising Neurological: Denies headache, numbness, tingling, focal weakness Physical Exam Physical Exam: General: A&Ox3. NAD. Cooperative. HEENT: Atraumatic, normocephalic. Pulm: CTAB A&P. -wheezes, -rales, -rhonchi. Symmetrical chest rise. No increase work of breathing. No respiratory distress. Cardiac: RRR, -mrg. Radial pulses intact and symmetrical. Abdominal: Nontender, nondistended, soft. BS present. CRANIAL NERVES: II: Pupils equal and reactive, no relative afferent pupillary defect. Left thigh left inferior peripheral field vision loss. Right eye left peripheral vision intact. III, IV, : EOM intact, no gaze preference or deviation, no nystagmus. V: normal sensation in V1, V2, and V3 segments bilaterally VII: no asymmetry, no nasolabial fold flattening VIII: normal hearing to speech IX, X: normal palatal elevation, no uvular deviation XI: 5/5 head turn and 5/5 shoulder shrug bilaterally XII: midline tongue protrusion MOTOR: RUE: 5/5 Shoulder internal rotation, external rotation, flexion, extension, abduction, adduction 5/5 Elbow flexion/extension, wrist flexion/extension 5/5 power screwdriver operator strength, finger flexion/extension, interosseus LUE: 5/5 Shoulder internal rotation, external rotation, flexion, extension, abduction, adduction 5/5 Elbow flexion/extension, wrist flexion/extension 5/5 power screwdriver operator strength, finger flexion/extension, interosseus RLE: 5/5 to hip flexion/extension, knee flexion/extension, ankle dorsiflexion/plantarflexion LLE: 5/5 to hip flexion/extension, knee flexion/extension, ankle dorsiflexion/plantarflexion SENSORY: Normal to touch in upper and lower extremities without deficit or asymmetry No hemineglect, no extinction to double sided stimulation (visual & tactile COORD: Normal finger to nose and heel to rouse, no tremor, no dysmetria Results & Data Results & Data ([facility]) Vital Signs (Past 12 Hours) Vital Signs Temp Pulse Resp BP BP Pulse Ox 07/30/20 14:02 163/104 H 07/30/20 13:48 149/75 H 07/30/20 13:17 76 20 97 07/30/20 13:15 76 22 176/103 H 98 07/30/20 13:14 78 23 183/104 H 97 07/30/20 13:11 84 22 196/90 H 98 07/30/20 13:01 72 22 190/103 H 98 07/30/20 13:00 72 20 99 07/30/20 12:50 79 21 217/102 H 98 07/30/20 12:49 86 21 99 07/30/20 12:40 75 16 99 07/30/20 12:15 72 21 100 07/30/20 11:49 36.5 C 74 20 190/120 H 98 Laboratory Results 07/30/20 07/30/20 07/30/20 Range/Units 13:26 13:26 12:15 WBC (4.8-10.8) K/uL RBC (4.2-5.4) M/uL Hgb (12.0-16.0) g/dL Hct (37-47) % MCV (80-100) fL MCH (25-34) pg MCHC (32-36) g/dL RDW Std Deviation (36.4-46.3) fL RDW Coeff of Beth (11.5-14.5) % Plt Count (130-400) K/uL MPV (7.4-10.4) fL Immature Gran % (Auto) % Neut % (Auto) % Lymph % (Auto) % [place] % (Auto) % Eos % (Auto) % Baso % (Auto) % Neut # (Auto) (1.4-6.5) K/uL Lymph # (Auto) (1.2-3.4) K/uL [place] # (Auto) (0.11-0.59) K/uL Eos # (Auto) (0-0.5) K/uL Baso # (Auto) (0-0.2) K/uL Immature Gran # (Auto) (0.00-0.02) K/uL PT (9.0-12.0) Seconds INR (0.9-1.1) APTT (21.0-31.0) Seconds PTT Ratio Sodium 140 (136-145) mmol/L Potassium 3.7 (3.5-5.1) mmol/L Chloride 110 H (98-107) mmol/L Carbon Dioxide 27 (21-32) mmol/L Anion Gap 3.0 (3-11) BUN 23 H (7-18) mg/dl Creatinine 1.48 H (0.6-1.2) mg/dl Est Cr Clr Drug Dosing 33.2 ml/min Est GFR ( Amer) 40.3 Est GFR (Non-Af Amer) 34.8 BUN/Creatinine Ratio 15.7 (10-20) Glucose 90 (70-99) mg/dl Calcium 10.2 H (8.5-10.1) mg/dl Magnesium 2.5 H (1.8-2.4) mg/dl Total Bilirubin 0.6 (0.2-1) mg/dl AST 16 (15-37) U/L ALT 27 (12-78) U/L Alkaline Phosphatase 59 (45-117) U/L Troponin I < 0.015 (0-0.045) ng/ml Total Protein 8.0 (6.4-8.2) gm/dl Albumin 4.1 (3.4-5.0) gm/dl Globulin 3.9 (2.5-4.0) gm/dl Albumin/Globulin Ratio 1.1 (0.9-2) COVID-19 Eval Order Covid19 IDNow [facility] SARS-CoV-2, RNA, NAAT NEGATIVE (NEGATIVE) 07/30/20 07/30/20 Range/Units 12:15 12:15 WBC 6.69 (4.8-10.8) K/uL RBC 4.86 (4.2-5.4) M/uL Hgb 15.1 (12.0-16.0) g/dL Hct 45.1 (37-47) % MCV 92.8 (80-100) fL MCH 31.1 (25-34) pg MCHC 33.5 (32-36) g/dL RDW Std Deviation 43.8 (36.4-46.3) fL RDW Coeff of Beth 12.9 (11.5-14.5) % Plt Count 180 (130-400) K/uL MPV 11.1 H (7.4-10.4) fL Immature Gran % (Auto) 0.1 % Neut % (Auto) 59.6 % Lymph % (Auto) 32.3 % [place] % (Auto) 7.0 % Eos % (Auto) 0.9 % Baso % (Auto) 0.1 % Neut # (Auto) 3.98 (1.4-6.5) K/uL Lymph # (Auto) 2.16 (1.2-3.4) K/uL [place] # (Auto) 0.47 (0.11-0.59) K/uL Eos # (Auto) 0.06 (0-0.5) K/uL Baso # (Auto) 0.01 (0-0.2) K/uL Immature Gran # (Auto) 0.01 (0.00-0.02) K/uL PT 10.9 (9.0-12.0) Seconds INR 1.0 (0.9-1.1) APTT 27.9 (21.0-31.0) Seconds PTT Ratio 1.0 Sodium (136-145) mmol/L Potassium (3.5-5.1) mmol/L Chloride (98-107) mmol/L Carbon Dioxide (21-32) mmol/L Anion Gap (3-11) BUN (7-18) mg/dl Creatinine (0.6-1.2) mg/dl Est Cr Clr Drug Dosing ml/min Est GFR ( Amer) Est GFR (Non-Af Amer) BUN/Creatinine Ratio (10-20) Glucose (70-99) mg/dl Calcium (8.5-10.1) mg/dl Magnesium (1.8-2.4) mg/dl Total Bilirubin (0.2-1) mg/dl AST (15-37) U/L ALT (12-78) U/L Alkaline Phosphatase (45-117) U/L Troponin I (0-0.045) ng/ml Total Protein (6.4-8.2) gm/dl Albumin (3.4-5.0) gm/dl Globulin (2.5-4.0) gm/dl Albumin/Globulin Ratio (0.9-2) COVID-19 Eval Order SARS-CoV-2, RNA, NAAT (NEGATIVE) Diagnostic Findings CT head/brain wo con CLINICAL HISTORY: 75 years-old Female with Stroke evaluation . Acute strokelike symptoms TECHNIQUE: Multiple axial CT images of the head were obtained without contrast. A dose lowering technique was utilized adhering to the principles of ALARA. CT DOSE: 1169.03 mGy.cm COMPARISON: CTA head neck of same day FINDINGS: No acute intracranial hemorrhage, midline shift, intracranial mass, hydrocephalus, territorial ischemia or abnormal extra-axial collection. Confluent white matter hypodensities suggest chronic microvascular ischemic disease. The calvarium is intact. The paranasal sinuses, mastoid air cells, and middle ear cavities are clear. IMPRESSION: No acute intracranial abnormality. CT angio neck with con, CT angio head w con CLINICAL HISTORY: 75 years-old Female with Stroke evaluation. Acute strokelike symptoms COMPARISON STUDY: Head CT of same day, brain MRI 12/29/2008 TECHNIQUE: Following the IV administration of 120 mL of Optiray 320, CT angiogram of the neck was performed from the aortic arch to the skull base. Images are reviewed in the axial, sagittal, and coronal planes. 3-D MIPS images are created and assessed. IV contrast was administered without complication. All measurements were calculated based on NASCET criteria. A dose lowering technique was utilized adhering to the principles of ALARA. FINDINGS: The imaged opacified pulmonary arterial tree is unremarkable. Three-vessel morphology of the thoracic aortic arch. Patent innominate and imaged subclavian arteries. Patent common and internal carotid arteries. There is mild mixed plaque of the left carotid bulb and proximal left ICA without high-grade stenosis. There is beaded irregularity with mild luminal narrowing involving the distal cervical segments of the left greater than right internal carotid arteries the level of C2. The internal carotid arteries are otherwise unremarkable and widely patent. There is minimal fusiform dilation of the mid M1 segment measuring 4 mm on image 89 series 5 without definite aneurysm identified. The bilateral middle and right anterior cerebral arteries are unremarkable. Hypoplastic left A1 segment, likely developmental. Codominant and widely patent vertebral arteries. There is tortuosity of the distal V2 segments. The basilar artery is patent. There is mild luminal narrowing at the origin of the right P1 segment. The bilateral posterior cerebral arteries are otherwise widely patent. origin of the left posterior cerebral artery. Cerebral venous sinuses are patent. No abnormal intracranial enhancement. Lung apices are clear. No pneumothorax. 1.5 cm heterogeneous nodule of the posterior left thyroid. Unremarkable soft tissues. No acute fracture. Indeterminate 1.0 cm sclerotic focus involves the posterior left fifth rib. IMPRESSION: 1. No saccular aneurysm, high-grade stenosis, dissection or proximal branch occlusion. 2. Mild mixed plaque of the left carotid bulb results in less than 50% luminal narrowing. 3. Beaded irregularity with mild luminal narrowing involves the distal cervical segments of the left greater than right internal carotid arteries at the level of C2. 4. origin of the left posterior cerebral artery. Code Status & VTE Plan Code Status Full code Supervising Physician Co-Signing Physician Notes PA Supervision Note: I personally saw and examined the patient. I verified all byers points and agree with Dr. Quinn with the following exceptions and/or additions: Patient presented with left-sided vision loss and disorientation that occurred as noted above 1 hour prior to sensation the ER. She received TPA after telestroke neurology consultation with Meena. At the time I saw her, she is still having some vision loss but no longer feels disoriented. Denies any weakness or numbness or tingling, no headache or lightheadedness, no chest pain or shortness of breath, no nausea or abdominal pain. Blood pressure is quite elevated upon arrival and she was also started on nicardipine drip which brought her blood pressures down nicely. History and ROS reviewed as above Vitals reviewed Gen: AAOx3, NAD HEENT: Anicteric sclerae, EOMI, PERRLA CV: RRR no mgr nl S1S2 Pulm: CTAB no wcr Abd: +BS soft NT ND no masses or hernias Ext: No edema, 2+ DP pulses Skin: No rashes, warm/dry Neuro: Full strength throughout, cranial nerves II through XII intact except with vision loss on all 4 quadrants on the left sided except for central vision Laboratory values reviewed CTA head and neck, CT head noncontrast [id number] 50% ICA stenosis ECG reviewed and nonspecific T wave changes in anterior leads 75-year-old female here with left-sided acute vision loss, likely right-sided occipital lobe acute ischemic CVA -Admit status post TPA orders, admit to ICU -Neurochecks, neurology consultation -Wean off nicardipine drip, continue clonidine and spironolactone -CT of the head in 24 hours Plan restart aspirin when okay from time of TPA Resident Activity Tracking Resident Involvement: Resident Care Provided Care Provided: Adult Hospital Medicine (1) Hypothyroidism Hypothyroidism type: acquired Qualified Code(s): E03.9 - Hypothyroidism, unspecified
--- NOTE | 2020-07-30 16:04 | XRay Report ---
SINGLE VIEW CHEST CLINICAL HISTORY: Left-sided visual loss. FINDINGS: An AP, portable, upright chest radiograph is obtained. No prior studies are available for c omparison at the time of dictation. The heart is enlarged noting atherosclerotic calcification of th e thoracic aorta. The pulmonary vascular structures noncongested. The lungs and pleural spaces are cl ear. No pneumothorax is seen. The skeletal structures are osteopenic. The bony thorax is grossly inta ct. IMPRESSION: Cardiomegaly with no acute cardiopulmonary abnormality. ACT 112: Negative or not required by law. Electronically signed by: Tank Tom M.D. 07/30/2020 4:03 PM
--- NOTE | 2020-07-30 16:16 | Billing Data ---
Date of Service July 30, 2020 Coding Level of Care Code 96336 Initial Inpt Care Lvl 3
--- NOTE | 2020-07-30 16:19 | Neurology Consultation ---
Date of Consultation July 30, 2020 Assessment & Plan (1) Benign secondary hypertension: (2) BRAO (branch retinal artery occlusion): Maria R Truogn is a 75 yo woman w/ PMH of HTN, HLD, CKD III, h/o BCC, hypothyroidism, hearing loss and postmenopausal bleeding who p/t [facility] after acute onset of left eye vision loss. Symptom localization: left eye branch retinal artery occlusion Stroke mechanism: cardioembolic vs vessel to vessel embolus Stroke WorkUp: - CT head: showed no hemorrhage or hypodensity, +moderate SVID - CTA head/neck: showed mild L ICA stenosis at the bifurcation, left SUBSTATION OPERATOR TRANSFORMING, beading of bilateral distal cervical ICAs (?fibromuscular dysplasia) and no other LVO, high grade stenosis or aneurysm noted - MRI brain: pending - TTE: pending, will consider GLENDA - Telemetry: pending - A1c: pending - FLP: pending - Troponin, TSH: negative, pending Stroke Management: - Acute treatment: tPA - Continuous cardiac monitoring, will consider Holter monitor as outpatient if telemetry here unrevealing - Vitals, Neurochecks, NIHSS per unit routine - BP parameters: Post-tPA: SBP 185/110 s/p TPA, ok to restart home anti- hypertensives (clonidine, spironolactone), IV Labetalol/Hydralazine PRN - Obtain MRI brain to evaluate stroke burden - Complete ischemic stroke workup with TTE without bubble, A1c, fasting lipid panel, TSH - Consult speech, PT, OT for supportive management - Will vocational counselor concerning stroke education, smoking cessation, healthy diet, physical activity, weight loss - Follow up with PCP for assistance with outpatient goals (BP <130/80, LDL <70, A1c <7) - Follow up in neurology clinic in 6-8 weeks (recommend MICHEL Parada so she can get in at that time) Secondary Stroke Prevention: - Antiplatelet: ASA 81mg po daily once cleared with 24 hour post-tPA scan - Anticoagulation: Not indicated at this time - Statin: Atorvastatin 80mg daily HTN: - BP parameters, as above FEN/GI: - Diet: Beside dysphagia to clear patient for PO meds/Cardiac HH diet given absence of bulbar signs or symptoms - Monitor lytes and replete PRN Glucose Control: - Sliding scale insulin and accuchecks per primary team to avoid hyperglycemia Thank you for this interesting consult. Plan of care was discussed with primary team. Please call with any questions. History of Present Illness History of Present Illness Maria R Truong is a 75 yo woman w/ PMH of HTN, HLD, CKD III, h/o BCC, hypothyroidism, hearing loss and postmenopausal bleeding who p/t [facility] after acute onset of left eye vision loss. 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 In the ED, she was afebrile, BP 190/120, HR 74, RR 20, satting 98% on room air. Labs notable for CBC WNL, Na 140, BUN 23, Cr 1.48, glucose 90, INR 1.0, Ca high at 10.2, Mg high at 2.5, LFTs WNL, troponin negative. CTH independently reviewed and showed no hemorrhage or hypodensity, +moderate SVID. CTA H&N showed mild L ICA stenosis at the bifurcation, left SUBSTATION OPERATOR TRANSFORMING, beading of bilateral distal cervical ICAs (?fibromuscular dysplasia) and no other LVO, high grade stenosis or aneurysm noted. MRI brain pending. On examination, she notes that [place] the [place] test [place] ( was exposed) when she had acute onset of left eye blurriness/vision loss in the peripheral aspect. She felt mildly confused around that time as well. Denied any other neurological symptoms (facial droop, N/T, or weakness). Called PCP who referred her to ED for evaluation. Does not take AC or AP. Has not missed any doses of anti-hypertensives. Stroke Workflow: Where patient arrived from: home CT ASPECT: 10 Time IV tpa is given: 13:23 on 07/30/20 tPA bolus: 6.4mg tPA dose: 57 mg If tpa not given, why not: n/a If delay >60min after hospital arrival, why: Hypertension requiring aggressive control with IV medications If no IA therapy, why not: No LVO on CTA Patient Features: Admission NIHSS: 0 Admission Modified [place] Scale: 0 Time patient last seen well: 10:45am on 07/30/20 Wake up stroke: No Intubation status: Not intubated Stroke Risk Factors: Hypertension: Y Hyperlipidemia: Y Atrial Fib: N Tobacco: N Diabetes: N Taking NOAC or warfarin: N Allergies Allergy/AdvReac Type Severity Reaction Status Date / Time ciprofloxacin [From Cipro] Allergy Verified 07/30/20 14:16 clindamycin Allergy Rash Verified 07/30/20 14:16 codeine Allergy Irritabilit Verified 07/30/20 14:16 y latex Allergy Verified 07/30/20 14:16 bacitracin [From Polysporin] AdvReac Verified 07/30/20 14:16 Home Medications Medication Instructions Recorded Confirmed Type calcium citrate 250 mg 1 tab PO TID 02/24/19 07/30/20 History calcium-vitamin D3 5 mcg (200 unit) tablet krill oil 500 mg capsule 500 mg PO TID cap 02/24/19 07/30/20 History coenzyme Q10 100 mg capsule 100 mg PO QPM cap 05/10/19 07/30/20 History grzcxvanuvmo-Py-rkbx-minerals 1 tab PO QAM tab 05/10/19 07/30/20 History spironolactone 25 mg tablet 25 mg PO BID #180 tab 03/21/20 07/30/20 Rx clonidine HCl 0.3 mg PO QPM 07/30/20 07/30/20 History levothyroxine 88 mcg PO QAM 07/30/20 07/30/20 History Patient History Medical History (Updated 07/30/20 @ 16:16 by Jovanna Presley MD) Basal cell carcinoma Benign colonic polyp Benign secondary hypertension Hypercholesterolemia Hypothyroidism Postmenopausal bleeding Primary aldosteronism SNHL (sensorineural hearing loss) Stage III chronic kidney disease Surgical History History of colonoscopy with polypectomy History of excision of lesion (~2014) scalp-benign Family History Aunt Breast cancer paternal aunt Ovarian cancer maternal aunt Uncle Colorectal cancer maternal uncle Brother Hemochromatosis Sister Ovarian cancer Mother Stroke Denies family history of Prostate cancer Myocardial infarction Social History Smoking Status: Never smoker Second Hand Exposure: No; Hx Alcohol Use: No Hx Substance Use: No Preferred Language: Romansh Communication Ability: Effective marital status: Current Living Situation: Spouse current occupational status: retired Feels Safe at Home: Yes Childhood Exposure to Second-Hand Smoke: No Dental Care, Regularly: Yes Physical Activity Frequency: 3-4 Times per Week Seatbelt Use: always Sunscreen Use: Yes Review of Systems Review of Systems: 14 point review of systems completed and negative except as in HPI. Exam (Neuro) Physical Exam: General Exam: GEN: NAD, lying down in examination bed. HEENT: No conjunctival injection, no rhinorrhea. CV: RRR on monitor, no significant edema. PULM: Nonlabored respirations on room air. Neuro Exam: MS: Awake and Alert. Oriented to person, place, and date. Speech fluent and appropriate without dysarthria or paraphasic errors. Language intact including naming, comprehension, repetition. Cognition and memory grossly intact. Attention intact. No neglect. CN: Left eye temporal hemianopia, + blink to threat bilaterally. No extinction to double simultaneous stimuli. Unable to visualize fundi on fundoscopic exam. PERRLA OU. EOMI without nystagmus. Facial sensation intact to LT. Facial muscles full and symmetric. Hearing intact to finger rub bilaterally. Uvula midline with symmetric palatal elevation. Shoulder shrug normal. Tongue midline. MOTOR: Normal bulk and tone. No pronator drift. BUE strength 5/5 at deltoids, biceps, triceps, wrist flexors and extensors, and finger flexors bilaterally. BLE strength 5/5 at iliopsoas, hamstrings, quadriceps, tibialis anterior, and gastrocnemius bilaterally. REFLEXES: 2+ at biceps, triceps, brachioradialis, 2+ patella, and trace Achilles bilaterally. Flexor plantar responses bilaterally. SENSORY: Intact to LT/vibration/temperature throughout, no extinction to double simultaneous stimuli. COORDINATION: No dysmetria or ataxia on kidqrs-bo-qdzs bilaterally. Normal Benson bilaterally. GAIT: Deferred due to physical status. NIH STROKE SCALE 1A. Level of Consciousness (0-3) = 0 1B. LOC Questions (0-2) = 0 1C. LOC Commands (0-2) = 0 2. Best Horizontal Gaze (0-2) = 0 3. Visual [place] (0-3) = 0 4. Facial Palsy (0-3) = 0 5. Motor Arm Right (0-4) = 0 Left (0-4) = 0 6. Motor Leg Right (0-4) = 0 Left (0-4) = 0 7. Limb Ataxia (0-2) = 0 8. Sensory (0-2) = 0 9. Best Language (0-3) = 0 10. Dysarthria (0-2) = 0 11. Extinction and Inattention (0-2) = 0 NIHSS TOTAL = 0 Results & Data ([facility]) Vital Signs (Past 12 Hours) Vital Signs Temp Pulse Resp BP BP Pulse Ox 07/30/20 15:31 17 99 07/30/20 15:20 26 H 151/76 H 98 07/30/20 15:15 21 98 07/30/20 15:10 17 148/83 H 98 07/30/20 15:00 21 136/66 99 07/30/20 14:50 26 H 141/75 H 98 07/30/20 14:46 19 151/76 H 07/30/20 14:45 20 07/30/20 14:44 29 H 151/76 H 98 07/30/20 14:40 19 152/80 H 07/30/20 14:34 20 155/79 H 07/30/20 14:33 155/79 H 07/30/20 14:30 20 142/75 H 07/30/20 14:22 23 141/90 H 141/90 H 07/30/20 14:15 83 20 07/30/20 14:10 85 19 171/79 H 07/30/20 14:04 81 21 163/104 H 07/30/20 14:02 163/104 H 07/30/20 14:00 76 17 142/84 H 07/30/20 13:51 80 19 149/75 H 07/30/20 13:48 149/75 H 07/30/20 13:45 77 26 H 07/30/20 13:37 79 24 159/100 H 07/30/20 13:35 79 24 173/93 H 07/30/20 13:33 87 23 159/102 H 07/30/20 13:25 81 22 167/93 H 99 07/30/20 13:20 77 19 162/98 H 98 07/30/20 13:17 76 20 97 07/30/20 13:15 76 22 176/103 H 98 07/30/20 13:14 78 23 183/104 H 97 07/30/20 13:11 84 22 196/90 H 98 07/30/20 13:01 72 22 190/103 H 98 07/30/20 13:00 72 20 99 07/30/20 12:50 79 21 217/102 H 98 07/30/20 12:49 86 21 99 07/30/20 12:40 75 16 99 07/30/20 12:15 72 21 100 07/30/20 11:49 36.5 C 74 20 190/120 H 98 PG Care Time/CCT Total # of Minutes Spent Total Time Spent with Patient: Total time spent is greater than 50% in coordination of care (as documented) at patient's floor/unit and/or counseling patient: Coding Level of Care Code 75818 Initial Inpt Care Lvl 3 Diagnoses Benign secondary hypertension I15.9 BRAO (branch retinal artery occlusion) H34.239
[2020-07-30 16:38] LABS: Appearance Urine Clear (Clear); Bilirubin Urine Negative (Negative); Blood Urine Negative (Negative); Color Urine Yellow; Glucose Urine UA Negative (Negative); Ketones Urine Negative (Negative); Leukocyte Esterase Urine Negative (Negative); Nitrite Urine Negative (Negative); Protein Urine Negative (Negative); Specific Gravity Urine 1.015 (1.000-1.030); Urobilinogen Urine Negative (Negative)
--- NOTE | 2020-07-30 16:50 | Magnetic Resonance Report ---
MR brain wo con HISTORY: 75 years-old Female Pt c/o left sided neglect acute strokelike symptoms COMPARISON: Head CT and CTA head studies of same day, brain MRI 12/29/2008. TECHNIQUE: Multiplanar multisequence MRI of the brain was obtained without the use of IV contrast. FINDINGS: Cylinder Block Mechanic localizer images demonstrate no gross extracranial abnormality. Restricted diffusion of the rig ht occipital lobe measures up to 4.0 cm in length with decreased signal on the ADC map. There is no s ignificant T2/FLAIR prolongation within this distribution. No significant midline shift or mass effec t. Midline structures including the corpus callosum, brainstem, optic chiasm, pituitary and pineal gl ands appear unremarkable on the sagittal T1 series. No cerebellar tonsillar herniation. No acute intracranial hemorrhage, midline shift, abnormal extra-axial collection, hydrocephalus or in tracranial mass. No pathologic blooming artifact on the T2 star series. Mild age-related involutional changes. Extensive T2/FLAIR hyperintensities are noted throughout the white matter of the bilateral cerebral hemispheres. Cerebral venous sinuses and major arterial flow voids at the level of the skull base appear patent. The orbits, skull and soft tissues are unremarkable. Mastoid air cells and paran aman sinuses are clear. IMPRESSION: 1. Moderate sized acute versus subacute infarct of the right occipital lobe. 2. No midline shift or acute intracranial hemorrhage. 3. Extensive T2/FLAIR hyperintensities throughout the white matter are suggestive of chronic microvas cular ischemic disease. ACT 112: Negative or not required by law. The above report was generated using voice recognition software. It may contain grammatical, syntax o r spelling errors. Electronically signed by: Paul Rodriguez M.D. 07/30/2020 4:49 PM
--- NOTE | 2020-07-30 17:06 | Critical Care Consultation ---
Date of Consultation July 30, 2020 Assessment & Plan (1) CVA (cerebral vascular accident): Reason Critically Ill: 75 yo F PMHx HTN, HLD, sensorineural hearing loss, CKD stage 3, hypothyroidism presented to ER for decreased visual acuity on left side with last known normal 1 hour prior to arrival to ED. Subsequent stroke alert called and received TPA. Admitted to ICU for post-TPA monitoring. Neuro - CVA s/p TPA: - This AM developed sudden left eye peripheral vision loss and disorientation, and arrived to ER about 60 minutes following start of symptoms. - Hypertensive to 190/120 on arrival, with improvement with nicardipine drip. - Tele-Neuro consult performed, decision made to proceed with TPA given CVA symptoms. - TPA administered at 1:33PM with improvement in disorientation. - CT Head showed no acute findings, CTA showing 50% left carotid stenosis, distal right ICA plaque, origin left GAUGER CHIEF DELIVERY. - MRI showed moderate sized acute vs. subacute infarct of the right occipital lobe which would account for patient's visual symptoms. - TTE in AM, no bubble study per Neurology. - Hgb A1c, lipid panel, TSH pending. - Neurology (Dr. Presley) consulted and appreciate recommendations. - Admitted to ICU for close hemodynamic monitoring and frequent neuro checks. - Goal BP <185/110 post-TPA. - Continue clonidine 0.3mg qHS, spironolactone 25mg BID. Labetalol 10mg and hydralazine 10mg q6h prn BP >180/100. - Start therapy with atorvastatin 40 mg daily. Resume aspirin 81 mg daily after 24 hours post-TPA scan. Cardiac - HTN: - Patient is on clonidine and spironolactone in outpatient setting. - Will resume home medications, with IV hydralazine and labetalol PRN BP >180/100. - Patient is on unusual hypertensive medication regimen at home, unclear if this is secondary to intolerance to multiple antihypertensives as patient has a self- reported history of several intolerances to several classes of medications. Respiratory - No present respiratory concerns. - No history of asthma/COPD. - COVID negative. MRSA nares pending. GI - - Clear liquid diet ordered with advance as tolerated. RENAL/LYTES - - No significant electrolyte derangement. - Replace lytes as needed. CKD stage 3: - History of CKD with baseline creatinine between 1.2-1.5. - Today with creatinine 1.48. - Renally dose medications and avoid nephrotoxins. - - No urinary concerns at this time. - Urinalysis without signs of infection or dehydration. - Strict Is/Os. ENDO - - ICU hyperglycemia protocol. Hypothyroidism: - History of, TSH 0.970 in March 2020. - Repeat TSH ordered for AM. - Continue home levothyroxine 88mcg daily. HEME - - Stable H&H, and no bleeding concerns. - Will monitor for any drops in the setting of recent TPA. ID - - No concerns for infection at this point. - COVID 19 negative, MRSA nares pending. - Monitor fever curve. INTEGUMENTARY - - No present concerns. LINES/IV ACCESS - - PIVs intact. DVT PROPHYLAXIS - - s/p TPA. - SCDs, hold chemical prophylaxis for now given post-TPA. Thank you for allowing us to be part of this patient's care. Please refer to Dr. Miller's documentation for any further recommendations. (2) Vision loss: (3) Benign secondary hypertension: (4) Hypercholesterolemia: (5) Hypothyroidism: (6) Stage III chronic kidney disease: (7) Hyperaldosteronism: Supervising Physician Co-Signing Physician Notes Dr. Martinez was the resident-physician during care of patient. I separately evaluated patient for byers portions of the history and the exam. I was present during the critical portion of medical decision making, and I discussed the case with the resident. I generally agree with the findings and plan except for any additions/exceptions noted. Seen and examined at bedside. No acute distress. Patient got TPA in the ED as she presented with left-sided vision loss and disorientation hour prior to the ER. CT and CTA was negative. She got TPA which was followed by MRI MRI showed right occipital acute to subacute infarct. Patient does have history of hypertension she is on clonidine as well as spironolactone. She has history of CKD. She is a lifetime non-smoker. At the time of examination she was on nicardipine drip 4. Having chewing gum in her mouth. No focal deficit. No nystagmus. She did not have left upper and lower quadrant vision. Continue with neurochecks. Aspiration precautions. Keep systolic blood pressure less than 180, diastolic blood pressure less than 105. Continue with home medication examination is able to swallow. Patient does need optimization of blood pressure medication as she is on clonidine 0.3 and spironolactone which is very unusual combination. As needed labetalol and hydralazine for systolic blood pressure greater than 180. I have personally spent 48 minutes of critical care time in the direct management of this patient. This is a life/limb threatening event. This inclu patricia time spent evaluating patient, direct bedside care, chart review, placing orders, interpretation of diagnostic studies, discussion with consultants, patient, and/or family members regarding treatment decisions, as well as other required patient management activities. This time is exclusive of all separately billable procedures, and teaching time and separate from and in addition to any other critical care service time. History of Present Illness Reason for Consultation: Post TPA monitoring Requesting Physician: Dr. Deniz Quinn Attending Physician: Shalonda Salgado MD History of Present Illness 75-year-old female past medical history significant for primary hyperaldosteronism and hypertension, hypothyroidism, hypertension, CKD stage III baseline creatinine 1.21.5 presented to the ER following sudden left sided vision loss and sensation of disorientation about 1 hour prior to arrival to ER. No associated weakness, dysarthria, dysphagia during this time. Has never had an episode like this in the past, no history of strokes. No smoking history. No alcohol or illicit drug use. On arrival to ER was found to have left eye peripheral left-sided vision loss. Stroke alert was called and tele-neuro consult was performed, decision was made to proceed with TPA. CT and CTA head without occlusive findings suggestive of stroke. Patient was transferred to ICU post TPA for close hemodynamic and blood pressure monitoring. On my interview patient is alert and oriented, reports that her sensation of disorientation has resolved but that she still is having difficulty with peripheral left-sided vision with her left eye. Denies chest pain, shortness of breath, abdominal pain, nausea or vomiting, recent fevers or chills. No sick contacts. Family history of stroke in mother, father due to sequelae of contrast nephropathy. Patient has a history of multiple allergies especially to antibiotic medications. In review of chart patient has had sensitivity to Cipro and penicillins in the past, recently followed with manager operations research who performed skin testing for both of these antibiotics, patient was not allergic. Allergies Allergy/AdvReac Type Severity Reaction Status Date / Time ciprofloxacin [From Cipro] Allergy Verified 11/16/20 14:16 clindamycin Allergy Rash Verified 07/30/20 14:16 codeine Allergy Irritabilit Verified 07/30/20 14:16 y latex Allergy Verified 07/30/20 14:16 bacitracin [From Polysporin] AdvReac Verified 07/30/20 14:16 Home Medications Medication Instructions Recorded Confirmed Type calcium citrate 250 mg 1 tab PO TID 02/24/19 07/30/20 History calcium-vitamin D3 5 mcg (200 unit) tablet krill oil 500 mg capsule 500 mg PO TID cap 02/24/19 07/30/20 History coenzyme Q10 100 mg capsule 100 mg PO QPM cap 05/10/19 07/30/20 History yebqdsugeize-Sa-such-minerals 1 tab PO QAM tab 05/10/19 07/30/20 History spironolactone 25 mg tablet 25 mg PO BID #180 tab 03/21/20 07/30/20 Rx clonidine HCl 0.3 mg PO QPM 07/30/20 07/30/20 History levothyroxine 88 mcg PO QAM 07/30/20 07/30/20 History Patient History Medical History (Updated 07/30/20 @ 17:58 by Christopher Gore MD) Basal cell carcinoma Benign colonic polyp Benign secondary hypertension Hypercholesterolemia Hypothyroidism Postmenopausal bleeding Primary aldosteronism SNHL (sensorineural hearing loss) Stage III chronic kidney disease Surgical History History of colonoscopy with polypectomy History of excision of lesion (~2014) scalp-benign Family History Aunt Breast cancer paternal aunt Ovarian cancer maternal aunt Uncle Colorectal cancer maternal uncle Brother Hemochromatosis Sister Ovarian cancer Mother Stroke Denies family history of Prostate cancer Myocardial infarction Social History Smoking Status: Never smoker Second Hand Exposure: No; Hx Alcohol Use: No Hx Substance Use: No Preferred Language: Persian Communication Ability: Effective Beliefs That Will Affect Care: None marital status: Current Living Situation: Spouse current occupational status: retired Feels Safe at Home: Yes Childhood Exposure to Second-Hand Smoke: No Dental Care, Regularly: Yes Physical Activity Frequency: 3-4 Times per Week Seatbelt Use: always Sunscreen Use: Yes Assistive Devices: None Review of Systems Review of Systems: All systems reviewed & are unremarkable except as noted in HPI & below Constitutional: no fever, no chills and no malaise Respiratory: no cough and no dyspnea Cardiovascular: no chest pain, no palpitations and no edema Gastrointestinal: no abdominal pain, no constipation and no diarrhea/loose stools Genitourinary: no dysuria and no hematuria Physical Exam Physical Exam: General: Patient is well developed well nourished in no acute distress. HEENT: Atraumatic, normocephalic. Pulm: Lungs clear to auscultation bilaterally. Cardiac: regular rate and rhythm, no murmurs. Abdominal: Soft, nontender, nondistended, normal bowel sounds. CRANIAL NERVE TESTING: II: Pupils equal and reactive to light and accommodation. Right eye vision intact to all visual mcmahan. Left eye with left inferior and left middle peripheral field vision loss. III, IV, : EOM intact, no gaze preference or deviation, no nystagmus. V: Normal sensation in V1, V2, and V3 segments bilaterally. VII: No asymmetry, no nasolabial fold flattening. VIII: Normal hearing grossly. IX, X: Normal palatal elevation, no uvular deviation. XI: 5/5 head turn and 5/5 shoulder shrug bilaterally. XII: Midline tongue protrusion, able to move in all directions. MOTOR: Bilateral UE and LE 5/5 strength. SENSORY: Normal to touch in UE and LE without deficit or asymmetry. No side neglect. COORDINATION: No tremor, seen walking with nurse assistance without balance deficits, gait normal. Results & Data Results & Data ([facility]) Vital Signs (Past 12 Hours) Vital Signs Temp Pulse Resp BP BP Pulse Ox 07/30/20 16:15 134/78 07/30/20 16:06 134/78 07/30/20 16:01 27 H 137/79 98 07/30/20 15:50 26 H 121/81 99 07/30/20 15:45 16 99 07/30/20 15:40 19 140/93 99 07/30/20 15:35 16 156/75 H 99 07/30/20 15:31 17 99 07/30/20 15:20 26 H 151/76 H 98 07/30/20 15:15 21 98 07/30/20 15:10 17 148/83 H 98 07/30/20 15:00 21 136/66 99 07/30/20 14:50 26 H 141/75 H 98 07/30/20 14:46 19 151/76 H 07/30/20 14:45 20 07/30/20 14:44 29 H 151/76 H 98 07/30/20 14:40 19 152/80 H 07/30/20 14:34 20 155/79 H 07/30/20 14:33 155/79 H 07/30/20 14:30 20 142/75 H 07/30/20 14:22 23 141/90 H 141/90 H 07/30/20 14:15 83 20 07/30/20 14:10 85 19 171/79 H 07/30/20 14:04 81 21 163/104 H 07/30/20 14:02 163/104 H 07/30/20 14:00 76 17 142/84 H 07/30/20 13:51 80 19 149/75 H 07/30/20 13:48 149/75 H 07/30/20 13:45 77 26 H 07/30/20 13:37 79 24 159/100 H 07/30/20 13:35 79 24 173/93 H 07/30/20 13:33 87 23 159/102 H 07/30/20 13:25 81 22 167/93 H 99 07/30/20 13:20 77 19 162/98 H 98 07/30/20 13:17 76 20 97 07/30/20 13:15 76 22 176/103 H 98 07/30/20 13:14 78 23 183/104 H 97 07/30/20 13:11 84 22 196/90 H 98 07/30/20 13:01 72 22 190/103 H 98 07/30/20 13:00 72 20 99 07/30/20 12:50 79 21 217/102 H 98 07/30/20 12:49 86 21 99 07/30/20 12:40 75 16 99 07/30/20 12:15 72 21 100 07/30/20 11:49 36.5 C 74 20 190/120 H 98 Resident Activity Tracking Resident Involvement: Resident Care Provided Care Provided: Adult Hospital Medicine (1) Hypothyroidism Hypothyroidism type: acquired Qualified Code(s): E03.9 - Hypothyroidism, unspecified
[2020-07-30] MEDS ORDERED: PHARMACIST DISCHARGE MED REC CONSULT PRN (17:09)
[2020-07-30] MEDS ORDERED: ICU PROTOCOL FOR HYPERGLYCEMIA PRN (17:09)
[2020-07-30] MEDS ORDERED: LABETALOL HCL IV 5 MG/ML 20ML IV PRN (17:25)
[2020-07-30] MEDS ORDERED: hydrALAZINE HCL 20 MG/ML VIAL IV PRN (17:25)
[2020-07-30] MEDS ORDERED: cloNIDine HCL 0.3 MG TAB PO ONE (18:00)
--- NOTE | 2020-07-30 18:35 | Billing Data ---
Date of Service July 30, 2020 Coding Level of Care Code Critical Care 1st 30-74 mins Time Spent (min) 48
[2020-07-30] MEDS ORDERED: cloNIDine HCL 0.3 MG TAB PO SCH (21:00)
[2020-07-30] MEDS: SPIRONOLACTONE 25 MG TAB PO SCH (21:58)
[2020-07-31 05:00] LABS: Basophils # (auto) 0.01 K/uL (0-0.2); Basophils % (auto) 0.1 %; Eosinophils # (auto) 0.04 K/uL (0-0.5); Eosinophils % (auto) 0.6 %; Hematocrit (blood only) 39.1 % (37-47); Hemoglobin 13.3 g/dL (12.0-16.0); Lymphocytes # (auto) 2.19 K/uL (1.2-3.4); Lymphocytes % (auto) 30.5 %; Mean Corpuscular Hemoglobin 31.4 pg (25-34); Mean Corpuscular Volume 92.2 fL (80-100); Mean Platelet Volume 11.7 fL (7.4-10.4); Monocytes % (auto) 8.3 %; Neutrophils # (auto) 4.35 K/uL (1.4-6.5); Neutrophils % (auto) 60.5 %; Platelet Count 194 K/uL (130-400); RDW Coefficient of Variation 13.1 % (11.5-14.5); Red Blood Count 4.24 M/uL (4.2-5.4); White Blood Count 7.19 K/uL (4.8-10.8)
[2020-07-31 05:41] LABS: BUN Creatinine Ratio 14.4 (10-20); Calcium 9.2 mg/dl (8.5-10.1); Creatinine Clr Calc Pharmacy 36.2 ml/min; Est GFR (Non-African American) 38.9
[2020-07-31 06:01] LABS: Thyroid Stimulating Hormone 0.917 uIu/ml (0.300-4.500)
[2020-07-31 06:16] LABS: Magnesium 1.8 mg/dl (1.8-2.4); Potassium 2.9 mmol/L (3.5-5.1)
[2020-07-31 06:25] LABS: Estimated Average Glucose 111 mg/dl; Hemoglobin A1C 5.5 % (4.5-5.6)
[2020-07-31] MEDS ORDERED: LEVOTHYROXINE SODIUM 88 MCG TABLET PO SCH (06:30)
[2020-07-31] MEDS ORDERED: POTASSIUM CHLORIDE CRTAB 20 MEQ TABCR PO STA (07:08)
[2020-07-31] MEDS ORDERED: POTASSIUM PHOS 3 MMOL/1 ML INFUSION IV STA (07:08)
[2020-07-31] MEDS ORDERED: POTASSIUM PHOSPHATE 30 MMOL in SODIUM CHLORIDE 0.9% 500 ML IV ONE (07:30)
--- NOTE | 2020-07-31 07:50 | Critical Care Progress Note ---
Date of Service July 31, 2020 Assessment & Plan (1) CVA (cerebral vascular accident): Reason Critically Ill: 75 yo F PMHx HTN, HLD, sensorineural hearing loss, CKD stage 3, hypothyroidism presented to ER for decreased visual acuity on left side with last known normal 1 hour prior to arrival to ED. Subsequent stroke alert called and received TPA. Admitted to ICU for post-TPA monitoring. Neuro - CVA s/p TPA: - 07/31 at 12pm developed sudden left eye peripheral vision loss and disorientation, and arrived to ER about 60 minutes following start of symptoms. - Hypertensive to 190/120 on arrival, with improvement with nicardipine drip. - Tele-Neuro consult performed, decision made to proceed with TPA given CVA symptoms. - TPA administered at 1:33PM with improvement in disorientation. 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 - MRI showed moderate sized acute vs. subacute infarct of the right occipital lobe which would account for patient's visual symptoms. - TTE performed this AM, pending results. - TSH normal. - Hgb A1c 5.5. - Lipid panel shows total cholesterol 242, LDL 158, HDL 56, TG 138. - Neurology (Dr. Presley) consulted and appreciate recommendations. - Admitted to ICU for close hemodynamic monitoring and frequent neuro checks. - Goal BP <185/110 post-TPA. - Continue clonidine 0.3mg qHS, spironolactone 25mg BID. Have d/c'ed prn labetalol and hydralazine. - 24 hour post-TPA CT Head ordered for 1PM, if scan is negative patient will be stable for downgrade to Med/Surg with Telemetry. - Start therapy with atorvastatin 40 mg daily. Start aspirin 81 mg daily after 24 hours post-TPA scan. Cardiac - HTN: - Patient is on clonidine and spironolactone in outpatient setting. - Continue home medications, with IV hydralazine and labetalol PRN BP >180/100. - Patient is on unusual hypertensive medication regimen at home, unclear if this is secondary to intolerance to multiple antihypertensives as patient has a self- reported history of several intolerances to several classes of medications. - Defer HTN medication changes to PCP. Respiratory - No present respiratory concerns. - No history of asthma/COPD. - COVID negative. MRSA nares pending. GI - - Heart Healthy diet. RENAL/LYTES - - K 2.9 this AM, repleted with KCl 20meq, KPhos 30mmol. - Mg 1.8 repleted with 2g Mg IV x1. - Repeat BMP, Mg, Phos at 3pm. CKD stage 3: - History of CKD with baseline creatinine between 1.2-1.5. - Today with creatinine 1.35 and with good UO. - Renally dose medications and avoid nephrotoxins. - - No urinary concerns at this time. - Urinalysis without signs of infection or dehydration, good UO. - Strict Is/Os. ENDO - - ICU hyperglycemia protocol. Hypothyroidism: - History of, TSH 0.970 in March 2020. - Repeat TSH this admission 0.917. - Continue home levothyroxine 88mcg daily. HEME - - Stable H&H, and no bleeding concerns. - Hgb 13.3 this AM. - Will monitor for any acute drops in the setting of recent TPA. ID - - No concerns for infection at this point. - COVID 19 negative, MRSA nares pending. - Monitor fever curve. INTEGUMENTARY - - No present concerns. LINES/IV ACCESS - - PIVs intact. DVT PROPHYLAXIS - - s/p TPA. - SCDs for now. Thank you for allowing us to be part of this patient's care. Suspect discharge to medical floor later today pending CT Head at 1PM. Please refer to Dr. Miller's documentation for any further recommendations. Admission and Anticipated Discharge Date Admission Date: July 30, 2020 Supervising Physician Co-Signing Physician Notes Dr. Martinez was the resident-physician during care of patient. I separately evaluated patient for byers portions of the history and the exam. I was present during the critical portion of medical decision making, and I discussed the case with the resident. I generally agree with the findings and plan except for any additions/exceptions noted. In/out: -1.5 L, urine output 2550 Seen and examined at bedside. No acute distress. No adverse events overnight Patient is off nifedipine drip. Patient's left-sided hemianopsia still persistent. No focal deficits on physical exam. Patient is able to swallow and eating well. Patient will have a repeat CT done at 1 PM if does not show any signs of bleeding patient can be downgraded to a medical floor. Hypomagnesemia and hypokalemia being replaced. Patient already on high-dose statin. If the repeat CT is negative we will start the patient on aspirin. Please note the above document was generated using voice recognition software. It may contain grammatical, syntax or spelling errors.Any formal questions or concerns about the content, text or information contained within the body of this dictation should be directly addressed to the provider for clarification. Subjective Patient without acute events overnight. Denies any changes in her vision, but will also say "I can't really tell if my vision has changed". Is alert and oriented. Denies headache or dizziness, chest pain, abdominal pain, nausea or vomiting, shortness of breath. Review of Systems Review of Systems: All systems reviewed & are unremarkable except as noted in HPI & below Constitutional: no fever, no chills and no malaise Respiratory: no cough and no dyspnea Cardiovascular: no chest pain, no palpitations and no edema Gastrointestinal: no abdominal pain, no constipation and no diarrhea/loose stools Genitourinary: no dysuria and no hematuria Neurologic: no headache(s) and no confusion Physical Exam Physical Exam: General: Patient is well developed well nourished in no acute distress. HEENT: Atraumatic, normocephalic. Pulm: Lungs clear to auscultation bilaterally. Cardiac: regular rate and rhythm, no murmurs. Abdominal: Soft, nontender, nondistended, normal bowel sounds. CRANIAL NERVE TESTING: II: Pupils equal and reactive to light and accommodation. Right eye vision intact to all visual mcmahan. Left eye with left inferior, middle, and superior peripheral field vision loss (seems more pronounced today). III, IV, : EOM intact, no gaze preference or deviation, no nystagmus. V: Normal sensation in V1, V2, and V3 segments bilaterally. VII: No asymmetry, no nasolabial fold flattening. VIII: Normal hearing grossly. IX, X: Normal palatal elevation, no uvular deviation. XI: 5/5 head turn and 5/5 shoulder shrug bilaterally. XII: Midline tongue protrusion, able to move in all directions. MOTOR: Bilateral UE and LE 5/5 strength. SENSORY: Normal to touch in UE and LE without deficit or asymmetry. No side negl ect. Results & Data Results & Data ([facility]) Vital Signs (Past 12 Hours) Vital Signs Temp Pulse Resp BP Pulse Ox 07/31/20 06:33 36.6 C 53 L 16 122/69 95 07/31/20 05:33 36.9 C 56 L 16 125/71 95 07/31/20 04:33 36.9 C 54 L 16 97/66 L 95 07/31/20 03:33 36.9 C 42 L 14 104/76 94 07/31/20 02:33 36.9 C 47 L 16 104/76 95 07/31/20 01:33 36.8 C 64 16 115/72 93 07/31/20 00:33 36.6 C 53 L 18 104/65 96 07/30/20 23:33 36.6 C 50 L 23 104/65 97 07/30/20 22:33 36.6 C 62 18 114/74 95 07/30/20 21:33 36.6 C 63 16 113/81 95 07/30/20 21:30 36.8 C 71 18 113/81 97 07/30/20 21:03 36.8 C 67 16 139/76 95 07/30/20 20:33 36.6 C 67 16 128/77 96 07/30/20 20:03 36.8 C 72 20 133/75 96 07/31/20 04:38 07/31/20 14:42 Resident Activity Tracking Resident Involvement: Resident Care Provided Care Provided: Adult Hospital Medicine (1) CVA (cerebral vascular accident) CVA mechanism: unspecified Qualified Code(s): I63.9 - Cerebral infarction, unspecified
[2020-07-31] MEDS: SPIRONOLACTONE 25 MG TAB PO SCH (07:53)
[2020-07-31] MEDS: MAGNESIUM SULFATE / D5W 1 GM/100 ML BAG IV SCH ×2 (07:53→09:06)
[2020-07-31] MEDS ORDERED: ATORVASTATIN 40 MG TAB PO SCH ×2 (09:00)
[2020-07-31] MEDS ORDERED: cloNIDine HCL 0.3 MG TAB PO SCH (09:00)
--- NOTE | 2020-07-31 10:18 | Neurology Progress Note ---
Date of Service July 31, 2020 Assessment & Plan (1) Benign secondary hypertension: (2) BRAO (branch retinal artery occlusion): (3) Acute right SUPERVISOR INSTRUMENT REPAIR stroke: Maria R Truong is a 75 yo woman w/ PMH of HTN, HLD, CKD III, h/o BCC, hypothyroidism, hearing loss and postmenopausal bleeding who p/t [facility] after acute onset of left eye vision loss. Symptom localization: right SUPERVISOR INSTRUMENT REPAIR territory Stroke mechanism: cardioembolic vs cryptogenic Stroke WorkUp: - CT head: showed no hemorrhage or hypodensity, +moderate SVID - CTA head/neck: showed mild L ICA stenosis at the bifurcation, left SUPERVISOR INSTRUMENT REPAIR, beading of bilateral distal cervical ICAs (?fibromuscular dysplasia) and no other LVO, high grade stenosis or aneurysm noted - MRI brain: acute infarct in right SUPERVISOR INSTRUMENT REPAIR/occipital lobe - TTE: EF 60-65%, borderline LVH, mild TR, no intraatrial shunt - Telemetry: NSR - A1c: 5.5 - FLP: 158 - Troponin, TSH: negative, WNL Stroke Management: - Acute treatment: tPA - Continuous cardiac monitoring, 30 day event monitor on discharge (vs loop recorder per patient preference) - Vitals, Neurochecks, NIHSS per unit routine - BP parameters: Post-tPA: SBP 180, continue home anti-hypertensives (clonidine, spironolactone), IV Labetalol/Hydralazine PRN - Consult speech, PT, OT for supportive management - Counselled concerning stroke education, smoking cessation, healthy diet, physical activity, weight loss - Follow up with PCP for assistance with outpatient goals (BP <130/80, LDL <70, A1c <7) - Follow up in neurology clinic in 6-8 weeks (recommend [facility] Parada so she can get in at that time) Secondary Stroke Prevention: - Antiplatelet: ASA 81mg po daily - Anticoagulation: Not indicated at this time - Statin: Atorvastatin 80mg daily HTN: - BP parameters, as above FEN/GI: - Diet: Cardiac HH diet given absence of bulbar signs or symptoms - Monitor lytes and replete PRN Glucose Control: - Sliding scale insulin and accuchecks per primary team to avoid hyperglycemia Thank you for this interesting consult. Plan of care was discussed with primary team. Please call with any questions. She is stable for discharge from a neurological standpoint. Admission and Anticipated Discharge Date Admission Date: July 30, 2020 Subjective NAEs overnight. Vision has slightly improved. 24 hour CTH stable, no hemorrhagic conversion noted. Review of Systems Review of Systems: 14 point review of systems completed and negative except as in HPI. Results & Data ([facility]) Vital Signs (Past 12 Hours) Vital Signs Temp Pulse Resp BP Pulse Ox 07/31/20 09:30 60 14 124/70 95 07/31/20 08:30 65 18 133/69 96 07/31/20 07:30 36.8 C 55 L 16 119/73 94 07/31/20 06:33 36.6 C 53 L 16 122/69 95 07/31/20 05:33 36.9 C 56 L 16 125/71 95 07/31/20 04:33 36.9 C 54 L 16 97/66 L 95 07/31/20 03:33 36.9 C 42 L 14 104/76 94 07/31/20 02:33 36.9 C 47 L 16 104/76 95 07/31/20 01:33 36.8 C 64 16 115/72 93 07/31/20 00:33 36.6 C 53 L 18 104/65 96 07/30/20 23:33 36.6 C 50 L 23 104/65 97 07/30/20 22:33 36.6 C 62 18 114/74 95 Exam (Neuro) 2 Physical Exam: General Exam: GEN: NAD, lying down in examination bed. HEENT: No conjunctival injection, no rhinorrhea. CV: RRR on monitor, no significant edema. PULM: Nonlabored respirations on room air. Neuro Exam: MS: Awake and Alert. Oriented to person, place, and date. Speech fluent and appropriate without dysarthria or paraphasic errors. Language intact including naming, comprehension, repetition. Cognition and memory grossly intact. Attention intact. No neglect. CN: Left eye temporal hemianopia has resolved for the most part, + blink to threat bilaterally. No extinction to double simultaneous stimuli. Unable to visualize fundi on fundoscopic exam. PERRLA OU. EOMI without nystagmus. Facial sensation intact to LT. Facial muscles full and symmetric. Hearing intact to finger rub bilaterally. Uvula midline with symmetric palatal elevation. Shoulder shrug normal. Tongue midline. MOTOR: Normal bulk and tone. No pronator drift. BUE strength 5/5 at deltoids, biceps, triceps, wrist flexors and extensors, and finger flexors bilaterally. BLE strength 5/5 at iliopsoas, hamstrings, quadriceps, tibialis anterior, and gastrocnemius bilaterally. REFLEXES: 2+ at biceps, triceps, brachioradialis, 2+ patella, and trace Achilles bilaterally. Flexor plantar responses bilaterally. SENSORY: Intact to LT/vibration/temperature throughout, no extinction to double simultaneous stimuli. COORDINATION: No dysmetria or ataxia on [id number] bilaterally. Normal Benson bilaterally. GAIT: Deferred due to physical status. NIH STROKE SCALE 1A. Level of Consciousness (0-3) = 0 1B. LOC Questions (0-2) = 0 1C. LOC Commands (0-2) = 0 2. Best Horizontal Gaze (0-2) = 0 3. Visual [place]ano (0-3) = 0 4. Facial Palsy (0-3) = 0 5. Motor Arm Right (0-4) = 0 Left (0-4) = 0 6. Motor Leg Right (0-4) = 0 Left (0-4) = 0 7. Limb Ataxia (0-2) = 0 8. Sensory (0-2) = 0 9. Best Language (0-3) = 0 10. Dysarthria (0-2) = 0 11. Extinction and Inattention (0-2) = 0 NIHSS TOTAL = 0 PG Care Time/CCT Total # of Minutes Spent Total Time Spent with Patient: Total time spent is greater than 50% in coordination of care (as documented) at patient's floor/unit and/or counseling patient: Coding Level of Care Code 79520 Subseq Hosp Care Lvl 3 Diagnoses Benign secondary hypertension I15.9 BRAO (branch retinal artery occlusion) H34.239 Acute right SUPERVISOR INSTRUMENT REPAIR stroke I63.531
--- NOTE | 2020-07-31 13:10 | XCELERA ---
[id number]
--- NOTE | 2020-07-31 13:20 | CT Scan Report ---
CT SCAN OF THE BRAIN WITHOUT IV CONTRAST CLINICAL HISTORY: Right occipital infarct 24 hours status post TPA. COMPARISON STUDY: CT and MRI of the brain dated 07/30/2020. TECHNIQUE: Unenhanced axial CT scan of the brain is performed from the vertex to the skull base. A do se lowering technique was utilized adhering to the principles of ALARA. CT DOSE: 614.27 mGy.cm FINDINGS: Brain parenchyma: There is loss of saleem-white matter differentiation identified in the right occipita l lobe consistent with a subacute infarct. There is minimal associated edema. There is no hemorrhage or midline shift. There are age-related involutional changes noting moderate confluent subcortical a nd periventricular microangiopathic change. No extra-axial fluid collection is seen. Ventricles, sulci, cisterns: Prominent secondary to involutional change. Intracranial vasculature: There is atherosclerotic calcification of the cavernous carotid arteries. Calvarium: Unremarkable. Sinuses and mastoids: The visualized paranasal sinuses are clear. The mastoid air cells are well pneu matized. Orbits: The bony orbits are grossly intact. IMPRESSION: 1. There is a subacute/evolving right occipital infarct. 2. There is no hemorrhage or midline shift. ACT 112: Negative or not required by law. Electronically signed by: Tank Tom M.D. 07/31/2020 1:18 PM
--- NOTE | 2020-07-31 13:56 | Hospitalist Progress Note ---
Date of Service July 31, 2020 Assessment & Plan (1) Vision loss: Maria R Truong is a 75yo F with a PMHx of primary hyperaldosteronism and HTN, no tobacco use, and CKD who presents with an acute episode of vision loss treated as a code stroke and treated with TPA L Peripheral Vision Loss, Stroke Alert, Post-TPA Patient presented with left peripheral vision loss and disorientation, improving post TPA. No weakness, sensory deficit, or other focal neurologic deficit on admitting exam. Left lower peripheral vision loss still appreciated - TPA Given at 07/30/2020 at 13:33pm CThead: No acute findings, CTA showing 50% left carotid stenosis, distal right ICA plaque, origin left RECORDS SECTION SUPERVISOR MRI shows acute right RECORDS SECTION SUPERVISOR stroke. Hypertensive on admission to 190/120 and received nicardipine drip prior to TPA TTE showed normal EF; no intraarterial shunt. Neurology consulted Admit to ICU for post TPA care Lipids indicate statin Patient is a non-smoker Antiplatelet agent per neuro recs. S/p 324mg ASA on admit. Continue ASA 81 mg. - ICU electrolyte protocol. No gross derangements on admit. Hypertension, primary hyperaldosteronism BP presently 130/70. - On home oral antihypertensives. Monitor. BMP daily Stage III chronic kidney disease Baseline creatinine 1.21.5 Patient at creatinine 1.48 BMP daily Covid assessment: Patient was with her who was getting a Covid test due to an exposure, was asymptomatic. Patient denies any symptoms of Covid. Covid test on ER admission was negative. DVT prophylaxis: SCDs. Pharmacal prophylaxis contraindicated in the setting of TPA administration. Diet: N.p.o. pending protocol speech eval. Normosol 120 cc/h Disposition: ICU CODE STATUS: Full code, discussed with patient (2) Benign secondary hypertension: (3) Hypercholesterolemia: (4) SNHL (sensorineural hearing loss): (5) Stage III chronic kidney disease: (6) Hypothyroidism: (7) Hyperaldosteronism: Admission and Anticipated Discharge Date Admission Date: July 30, 2020 Subjective Still having vision trouble more in the left than the right. Reports no fevers/chills, chest pain, shortness of breath, abdominal pain, nausea, or vomiting. Physical Exam Constitutional: WD/WN, vitals as above Eyes: EOM intact bilaterally; no conjunctival abnormality ENMT: external ear and nose normal, oropharynx normal Neck: trachea midline, no thyromegaly normal visual inspection Respiratory: normal respiratory effort, lungs clear to auscultation no respiratory distress Cardiovascular: RRR, no murmur, no edema Gastrointestinal (Abdomen): Inspection/Auscultation: abdomen normal to inspection; abdomen not distended Musculoskeletal: no cyanosis or clubbing, extremities motor strength 5/5 Skin: no rashes, warm and dry Neurologic: moves all extremities and awake Psychiatric: Orientation: alert, oriented to person and cooperative Results & Data Results & Data ([facility]) Vital Signs (Past 12 Hours) Vital Signs Temp Pulse Resp BP Pulse Ox 07/31/20 13:30 66 18 128/68 94 07/31/20 12:30 62 16 125/70 96 07/31/20 11:30 36.7 C 65 22 114/54 L 96 07/31/20 10:30 69 17 142/78 H 95 07/31/20 09:30 60 14 124/70 95 07/31/20 08:30 65 18 133/69 96 07/31/20 07:30 36.8 C 55 L 16 119/73 94 07/31/20 06:33 36.6 C 53 L 16 122/69 95 07/31/20 05:33 36.9 C 56 L 16 125/71 95 07/31/20 04:33 36.9 C 54 L 16 97/66 L 95 07/31/20 03:33 36.9 C 42 L 14 104/76 94 07/31/20 02:33 36.9 C 47 L 16 104/76 95 PG Care Time/CCT Total # of Minutes Spent Total Time Spent with Patient: Total time spent is greater than 50% in coordination of care (as documented) at patient's floor/unit and/or counseling patient: Coding Level of Care Code 84685 Subseq Hosp Care Lvl 2 Diagnoses Vision loss H54.7 Benign secondary hypertension I15.9 Hypercholesterolemia E78.00 SNHL (sensorineural hearing loss) H90.5 Stage III chronic kidney disease N18.3 Hypothyroidism E03.9 Hypothyroidism type: acquired Hyperaldosteronism E26.9 (1) Hypothyroidism Hypothyroidism type: acquired Qualified Code(s): E03.9 - Hypothyroidism, unspecified
[2020-07-31] MEDS ORDERED: STROKE PATIENT DISCHARGE STA (14:26)
--- NOTE | 2020-07-31 14:57 | Pharmacy Report ---
Pharmacist Stroke Counseling - Date of Service July 31, 2020 - Scope: Pharmacy has been consulted to provide medication discharge counseling for this patient admitted with [ischemic stroke] [hemorrhagic stroke] [transient ischemic attack] as per the Pharmacist Discharge Counseling for Stroke Patients Pro tocol. - Medications on Discharge: Home Medications Medication Instructions Recorded Confirmed calcium citrate 250 mg 1 tab PO TID 02/24/19 07/30/20 calcium-vitamin D3 5 mcg (200 unit) tablet krill oil 500 mg capsule 500 mg PO TID cap 02/24/19 07/30/20 coenzyme Q10 100 mg capsule 100 mg PO QPM cap 05/10/19 07/30/20 [id number]-Nm-dwic-minerals 1 tab PO QAM tab 05/10/19 07/30/20 clonidine HCl 0.3 mg PO QPM 07/30/20 07/30/20 levothyroxine 88 mcg PO QAM 07/30/20 07/30/20 New Rx's Medication Instructions Recorded spironolactone 25 mg tablet 25 mg PO BID #180 tab 03/21/20 aspirin 81 mg PO DAILY #30 tab 07/31/20 atorvastatin 80 mg PO HS #30 tab 07/31/20 - Action: The above medications, specifically ones for stroke treatment/prophylaxis, have been reviewed in detail with the patient and/or patient passenger service representative(s) prior to discharge. This includes indication, common adverse reactions, drug interactions, and medication administration. Medication counseling has been employed using the teach-back method to ensure understanding. - Outcome: The patient and/or patient passenger service representative(s) have demonstrated understanding of the medications. Additional comments: Discussed new medications with patient and reviewed previous medications, she had no further questions. Thank you for allowing pharmacy to be involved in the care of this patient. Please call [phone] with any additional questions
[2020-07-31 15:51] LABS: BUN Creatinine Ratio 15.4 (10-20); Calcium 8.8 mg/dl (8.5-10.1); Creatinine Clr Calc Pharmacy 31.8 ml/min; Est GFR (African American) 42.4; Est GFR (Non-African American) 36.5; Magnesium 2.9 mg/dl (1.8-2.4); Potassium 4.4 mmol/L (3.5-5.1)
--- NOTE | 2020-07-31 15:56 | Discharge Summary ---
Date of Service July 31, 2020 Admission HPI Per Admitting Provider Maria R was walking with her at the mall to get a COVID test after he was exposed on . They were walking in the mall when she got blurry vision on her L peripheral vision and felt disoriented. She returned home and found she was still having trouble seeing finger movements in her L peripheral vision. She came to the hospital with her because she was concerned by the sudden change. She also endorses that she felt dazed and confused/disoriented during the episode. She reports she could see the stores at the mall, but couldn't remember where she was and on the way home could see signs but couldn't make out where she was. No trouble speaking, no weakness. No chagne in taste or smell.Deficit started approximately 12:00 PM. Received TPA at 1333 hrs.Denies chest pain, chest pressure, palpitations, syncope, presyncope, numbness, tingling, headache, focal weakness. Currently she feels her L periopheal vision still has some reduced scope. She longer feels disoriented, but notes she 'isn't going anywhere.' Medical History: Reviewed Medications: Reviewed with pharmacy in room. Pt is a somewhat poor historian of her medications at time of assessment, can recognize names but cannot recall their names at baseline. Took AM medications today. SHx: Reviewed Allergies: Reviewed, cipro allergy added FHx: She reports her father passed of a dye induced kidney injury. Social: No tobacco product, EtoH use, or recreational drug use. Lives at home with , has adult children who are out of the house. No sick contacts. CODE Status:Full code, discussed with patient Principal Diagnosis Occipital stroke Discharge Exam Constitutional WD/WN, vitals as above Eyes EOM intact bilaterally; no conjunctival abnormality ENMT external ear and nose normal, oropharynx normal Neck trachea midline, no thyromegaly normal visual inspection Respiratory normal respiratory effort, lungs clear to auscultation no respiratory distress Cardiovascular RRR, no murmur, no edema Gastrointestinal (Abdomen) Inspection/Auscultation: abdomen normal to inspection; abdomen not distended Musculoskeletal no cyanosis or clubbing, extremities motor strength 5/5 Skin no rashes, warm and dry Neurologic moves all extremities and awake Psychiatric Orientation: alert, oriented to person and cooperative Discharge Data Allergies Allergy/AdvReac Type Severity Reaction Status Date / Time ciprofloxacin [From Cipro] Allergy Verified 07/30/20 14:16 clindamycin Allergy Rash Verified 07/30/20 14:16 codeine Allergy Irritabilit Verified 07/30/20 14:16 y latex Allergy Verified 07/30/20 14:16 bacitracin [From Polysporin] AdvReac Verified 07/30/20 14:16 Consultations 07/30/20 17:09 Consult Case Management - Discharge Planning Routine Consult Case Management - Discharge Planning Routine Consult Surveillance Observer Routine Consult Neurology Routine Ordered Studies 07/30/20 12:21 CT angio head w con Stat CT angio neck with con Stat CT head/brain wo con Stat 07/30/20 12:56 MR brain wo con Stat 07/31/20 13:00 CT head/brain wo con Routine Hospital Course (1) Vision loss: Maria R Truong is a 75yo F with a PMHx of primary hyperaldosteronism and HTN, no tobacco use, and CKD who presents with an acute episode of vision loss treated as a code stroke and treated with TPA L Peripheral Vision Loss, Stroke Alert, Post-TPA Patient presented with left peripheral vision loss and disorientation, improving post TPA. No weakness, sensory deficit, or other focal neurologic deficit on admitting exam. 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 Hypertensive on admission to 190/120 and received nicardipine drip prior to TPA TTE showed normal EF; no intraarterial shunt. Neurology consulted Admit to ICU for post TPA care Lipids indicate statin Patient is a non-smoker Antiplatelet agent per neuro recs. S/p 324mg ASA on admit. Continue ASA 81 mg. - ICU electrolyte protocol. No gross derangements on admit. Hypertension, primary hyperaldosteronism BP presently 130/70. - On home oral antihypertensives. Monitor. BMP daily Stage III chronic kidney disease Baseline creatinine 1.21.5 Patient at creatinine 1.48 BMP daily Covid assessment: Patient was with her who was getting a Covid test due to an exposure, was asymptomatic. Patient denies any symptoms of Covid. Covid test on ER admission was negative. DVT prophylaxis: SCDs. Pharmacal prophylaxis contraindicated in the setting of TPA administration. Diet: N.p.o. pending protocol speech eval. Normosol 120 cc/h Disposition: ICU CODE STATUS: Full code, discussed with patient (2) Benign secondary hypertension: (3) Hypercholesterolemia: (4) SNHL (sensorineural hearing loss): (5) Stage III chronic kidney disease: (6) Hypothyroidism: (7) Hyperaldosteronism: Total Time Total Time Spent Total Time Spent (In Minutes): 35 Discharge Plan Discharge Items Patient Disposition: Home - Home Health Services Reason For Visit: STROKE Discharge Diagnosis: Stroke Activity: Resume your previous activity Non-emergency contact: Primary Care Provider, Neurologist and Gas Plant Technician Call non-emergency contact if: your symptoms worsen and your temperature is above 101 Follow-up/Referrals: Esau Funez III, CRNP [Primary Care Provider] - Jovanna Presley MD [Physician] - (Please follow up with Dr. Presley or Pavithra Arcos in 4-6 weeks in the office.) Diet: Heart Healthy Addtl Attending Provider Instructions: Ms. Truong, You were admitted to the hospital with confusion and vision changes. Unfortunately, we found that you had a stroke in the posterior part of your brain that affects vision. It seems like your confusion has improved, but that you have not yet had much improvement in the vision. Please start a statin medication called atorvastatin which we are prescribing. In addition, please start taking a baby aspirin every day. We will be sending you a 30-day event monitor in the mail. This will monitor your heart rhythm for 30 days to ensure you don't have any abnormal heart rhythms that would raise your risk of further stroke. Please follow up with your PCP in 1-2 weeks to see how you are doing and also please see your eye doctor for official vision testing to see what areas are clear and what areas of your vision have been affected. Pending Studies at Discharge: No Stand-Alone Forms: Medications to Prevent Stroke, [facility], Smoking Cessation Medications and DC Order Prescriptions: New atorvastatin 80 mg tablet 80 mg PO HS Qty: 30 RF: 0 aspirin 81 mg tablet,delayed release (DR/EC) 81 mg PO DAILY Qty: 30 RF: 0 Continued calcium citrate-vitamin D3 250 mg calcium- 200 unit tablet 1 tab PO TID RF: 0 krill oil 500 mg capsule 500 mg PO TID RF: 0 coenzyme Q10 100 mg capsule 100 mg PO QPM RF: 0 Multiple Vitamin, Womens tablet 1 tab PO QAM RF: 0 spironolactone 25 mg tablet 25 mg PO BID Qty: 180 RF: 1 clonidine HCl 0.3 mg tablet 0.3 mg PO QPM RF: 0 levothyroxine 88 mcg capsule 88 mcg PO QAM RF: 0 Discharge Orders: Discharge Order (Routine); Ordered 07/31/20 Ordered By: Bryce Soto Admission Data Admit Date/Time: 07/30/20 14:52 Attending Provider: Bryce Soto Admit Provider: Deniz Quinn Primary Care Provider: Esau Funez III Other Providers: Jeff Miller ; Jovanna Presley Coding Level of Care Code D/C Day Management >30 mins Diagnoses Vision loss H54.7 Benign secondary hypertension I15.9 Hypercholesterolemia E78.00 SNHL (sensorineural hearing loss) H90.5 Stage III chronic kidney disease N18.3 Hypothyroidism E03.9 Hypothyroidism type: acquired Hyperaldosteronism E26.9
--- NOTE | 2020-07-31 16:18 | Billing Data ---
Date of Service July 31, 2020 Coding Level of Care Code 58639 Subseq Hosp Care Lvl 3
== END 2020-07-31 16:00 | disposition home or self-care (01) | DRG 62 ==
LOC: ED 11:44 → SUATTDRO 14:52 → 1E 14:52 → 2N 07-31 13:51

== ENCOUNTER 2025-03-26 07:48 | Observation (INO) ==
--- NOTE | 2025-03-26 08:10 | Emergency Department Note ---
History of Present Illness General Chief complaint: Abdominal Pain Stated complaint: LOWER L ABD PAIN Time Seen by Provider: 03/26/25 07:58 History of Present Illness Maximum Pain Intensity: 9 This is a 79-year-old female that presents to the emergency department via private vehicle with complaints of "left lower quadrant abdominal pain". The patient notes 1 week ago she had a brief episode of left lower quadrant abdominal pain. That resolved. Then today around 5 AM she was awoken with sharp, sudden onset left lower quadrant abdominal pain. She notes associated nausea and vomiting. No chest pain or shortness of breath. She notes her current pain is a 9/10. Home Medications Medication Instructions Recorded Confirmed Type krill oil 500 mg capsule 1,000 mg PO DAILY 09/21/20 03/26/25 History aspirin 81 mg tablet,delayed 81 mg PO DAILY #30 tabs 11/21/20 03/26/25 Rx release coenzyme Q10 100 mg capsule 200 mg PO QPM 03/26/22 03/26/25 History spironolactone 25 mg tablet 25 mg PO BID #180 tabs 04/04/24 03/26/25 Rx levomefolate 500 mcg-niacinamide 1 tab PO DAILY #30 tabs 05/20/24 03/26/25 Rx 750 oz-osqncl-Pz-selen-chrom tablet (Nicotinamide (with chromium)) levothyroxine 75 mcg tablet 75 mcg PO DAILY #90 tabs 02/07/25 03/26/25 Rx (Synthroid) atorvastatin 80 mg tablet 80 mg PO HS 03/26/25 03/26/25 History clonidine HCl 0.3 mg tablet 0.3 mg PO QPM 03/26/25 03/26/25 History multivitamin 1 tab PO DAILY 03/26/25 03/26/25 History Allergies Allergy/AdvReac Type Severity Reaction Status Date / Time Penicillins Allergy Unknown Rash Verified 03/26/25 09:48 ciprofloxacin [From Cipro] Allergy Verified 03/26/25 09:48 clindamycin Allergy Rash Verified 03/26/25 09:48 codeine Allergy Irritabilit Verified 03/26/25 09:48 y latex Allergy Verified 03/26/25 09:48 bacitracin [From Polysporin] AdvReac Verified 03/26/25 09:48 Past Med/Surg History Problem List (Updated 03/26/25 @ 14:01 by Gaurav Griggs PA-C) Hydronephrosis (Acute) Calculus of distal left ureter (Acute) Abdominal pain, left lower quadrant (Acute) Calcium nephrolithiasis Raynauds phenomenon BRAO (branch retinal artery occlusion) Vision loss (Acute) Benign secondary hypertension (Chronic) Hypercholesterolemia (Chronic) Hypothyroidism (Chronic) SNHL (sensorineural hearing loss) (Chronic) Stage III chronic kidney disease (Chronic) Hyperaldosteronism (Chronic) Medical History Acute right 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 stroke CVA (cerebral vascular accident) Postmenopausal bleeding Benign colonic polyp Basal cell carcinoma Primary aldosteronism Surgical History History of excision of lesion (~2014) scalp-benign History of colonoscopy with polypectomy Family History Aunt Breast cancer paternal aunt Ovarian cancer maternal aunt Uncle Colorectal cancer maternal uncle Brother Hemochromatosis Liver disease Sister Ovarian cancer Mother Stroke Hypertension Pulmonary embolism Denies family history of Prostate cancer Diabetes Myocardial infarction Ulcerative colitis Asthma Social History Smoking Status: Never smoker Second Hand Exposure: No; Do You Dip or Chew Tobacco: No; Hx Alcohol Use: No Hx Substance Use: No Preferred Language: Albanian Communication Ability: Effective Visual Impairment: No Limitations Hearing Ability: Normal Hvac/R Instructor Required: No Beliefs That Will Affect Care: None marital status: Current Living Situation: Spouse current occupational status: retired How many Children do You have: 2 Other Information That Helps Us Care for You: No Feels Safe at Home: Yes Safety Concerns: Feels Safe At This Time Childhood Exposure to Second-Hand Smoke: No Diet: regular caffeine: No during the past year weight has: remained stable Dental Care, Regularly: Yes Physical Activity Frequency: Daily Seatbelt Use: always Sunscreen Use: No Assistive Devices: Glasses Review of Systems A total of 10 systems reviewed and were otherwise negative Physical Exam Vital Signs Vital Signs - 24 hr 03/26/25 07:53 03/26/25 08:14 03/26/25 08:55 Temperature 36.4 C L Temperature Source Oral Pulse Rate 78 70 Pulse Rate [Apical] Pulse Rhythm Pulse Rhythm [Apical] Pulse Strength [Apical] Respiratory Rate 20 Respiratory Effort / Characteristics Non-Labored Spontaneous Respiratory Depth Normal Respiratory Pattern Blood Pressure 196/93 H Blood Pressure [Left Radial Artery] Blood Pressure Mean 127 Blood Pressure Mean [Left Radial Artery] Blood Pressure Position [Left Radial Artery] Pulse Oximetry 99 Oxygen Delivery Method Room Air Oxygen Flow Rate Sepsis Recent Fever Within 48 Hours No Sepsis New/Unexplained Change in Mental Status N/A Sepsis Action Taken by Nursing No Action Required Oxygen Flow Rate - Titration Pulse Oximetry Post Tiitration 03/26/25 08:57 03/26/25 09:39 03/26/25 09:43 Temperature Temperature Source Pulse Rate 76 55 L Pulse Rate [Apical] Pulse Rhythm Regular Pulse Rhythm [Apical] Pulse Strength [Apical] Respiratory Rate 26 H 16 Respiratory Effort / Characteristics Respiratory Depth Respiratory Pattern Blood Pressure 167/110 H Blood Pressure [Left Radial Artery] Blood Pressure Mean 129 Blood Pressure Mean [Left Radial Artery] Blood Pressure Position [Left Radial Artery] Pulse Oximetry 100 80 L 97 Oxygen Delivery Method Room Air Nasal Cannula Nasal Cannula Oxygen Flow Rate 0 4 Sepsis Recent Fever Within 48 Hours Sepsis New/Unexplained Change in Mental Status Sepsis Action Taken by Nursing Oxygen Flow Rate - Titration 4 Pulse Oximetry Post Tiitration 97 03/26/25 10:00 03/26/25 10:07 Temperature Temperature Source Pulse Rate Pulse Rate [Apical] 56 L Pulse Rhythm Pulse Rhythm [Apical] Regular Pulse Strength [Apical] Normal Respiratory Rate 18 Respiratory Effort / Characteristics Non-Labored Spontaneous Respiratory Depth Normal Respiratory Pattern Regular Blood Pressure Blood Pressure [Left Radial Artery] 172/95 H Blood Pressure Mean Blood Pressure Mean [Left Radial Artery] 120 Blood Pressure Position [Left Radial Artery] Lying Pulse Oximetry 97 97 Oxygen Delivery Method Nasal Cannula Nasal Cannula Oxygen Flow Rate 3 4 Sepsis Recent Fever Within 48 Hours Sepsis New/Unexplained Change in Mental Status Sepsis Action Taken by Nursing Oxygen Flow Rate - Titration 3 Pulse Oximetry Post Tiitration 96 VITAL SIGNS - Vital signs and nursing notes were reviewed. Stable and afebrile. GENERAL - 79-year-old female appearing her stated age who is in no acute distress. Communicates well with provider and answers questions appropriately. SKIN - Without rashes. HEAD - NC/AT. EYES - PERRL with EOMI bilaterally. Sclera anicteric. NECK - No nuchal rigidity. LUNGS - CTA CARDIAC - RRR ABDOMEN - Abdominal contour normal without pulsations or visible masses. LLQ abd TTP noted. BS normoactive all four quadrants. No palpable masses, hepatosplenomegaly, or ascites noted. EXTREMITIES - No clubbing or peripheral cyanosis. +5/5 strength noted in UE/LE bilaterally. NEUROLOGIC - Cranial nerves II through XII grossly intact. PSYCH -alert, oriented and pleasant on exam Course Administered Medications Discontinued Medications Hydromorphone HCl (Hydromorphone Inj 0.5 Mg/0.5 Ml Syr) Confirm Administered Dose 0.5 mg .ROUTE .STK-MED ONE Stop: 03/26/25 09:21 Last Admin: 03/26/25 09:21 Dose: 0.25 mg Documented By: Hydromorphone HCl (Hydromorphone Inj 0.5 Mg/0.5 Ml Syr) 0.25 mg IV NOW STA Stop: 03/26/25 09:48 Last Admin: 03/26/25 09:50 Dose: Not Given Documented By: Hydromorphone HCl (Hydromorphone Inj 0.5 Mg/0.5 Ml Syr) 0.25 mg IV NOW STA Stop: 03/26/25 12:32 Last Admin: 03/26/25 12:42 Dose: 0.25 mg Documented By: BALBIR Sodium Chloride (Nss) 1,000 mls @ 500 mls/hr IV .Q2H ONE Stop: 03/26/25 10:58 Last Infusion: 03/26/25 12:03 Dose: Infused Documented By: Admin: 03/26/25 09:06 Dose: 500 mls/hr Documented By: Morphine Sulfate (Morphine Sulfate 2 Mg/Ml Carp) 2 mg IV NOW STA Stop: 03/26/25 08:48 Last Admin: 03/26/25 08:55 Dose: 2 mg Documented By: MR Morphine Sulfate (Morphine Sulfate 2 Mg/Ml Carp) 2 mg IV NOW STA Stop: 03/26/25 09:06 Last Admin: 03/26/25 09:08 Dose: 2 mg Documented By: MR Morphine Sulfate (Morphine Sulfate 2 Mg/Ml Carp) 2 mg IV NOW STA Stop: 03/26/25 10:30 Last Admin: 03/26/25 10:37 Dose: 2 mg Documented By: Ondansetron HCl (Ondansetron Inj 2 Mg/Ml 2 Ml Vial) 4 mg IV NOW STA Stop: 03/26/25 08:48 Last Admin: 03/26/25 08:54 Dose: 4 mg Documented By: Ondansetron HCl (Ondansetron Inj 2 Mg/Ml 2 Ml Vial) 4 mg IV NOW STA Stop: 03/26/25 10:00 Last Admin: 03/26/25 10:03 Dose: 4 mg Documented By: Medical Decision Making Laboratory Data 03/26/25 08:05 03/26/25 08:05 Lab Results 03/26/25 03/26/25 Range/Units 08:05 10:04 WBC 8.95 (4.8-10.8) K/ul RBC 4.67 (4.20-5.40) M/uL Hgb 14.6 (12.0-16.0) g/dl Hct 42.8 (37.0-47.0) % MCV 91.6 (80.0-100.0) fL MCH 31.3 (25.0-34.0) pg MCHC 34.1 (32.0-36.0) g/dL RDW Std Deviation 42.5 (36.4-46.3) fL RDW Coeff of Beth 12.8 (11.5-14.5) % Plt Count 174 (130-400) K/uL MPV 10.4 (9.4-12.4) fL Immature Gran % (Auto) 0.2 % Neut % (Auto) 71.0 % Lymph % (Auto) 20.3 % Simpson % (Auto) 6.8 % Eos % (Auto) 1.3 % Baso % (Auto) 0.4 % Neut # (Auto) 6.34 (1.40-6.50) K/uL Lymph # (Auto) 1.82 (1.20-3.40) K/uL Simpson # (Auto) 0.61 H (0.11-0.59) K/uL Eos # (Auto) 0.12 (0.00-0.50) K/uL Baso # (Auto) 0.04 (0.00-0.20) K/uL Immature Gran # (Auto) 0.02 (0.01-0.20) K/uL Sodium 140 (136-145) mmol/L Potassium 3.6 (3.5-5.1) mmol/L Chloride 107 (98-107) mmol/L Carbon Dioxide 20 L (21-32) mmol/L Anion Gap 13 H (3-11) BUN 33 H (6-23) mg/dl Creatinine 1.47 H (0.6-1.2) mg/dl Est Cr Clr Drug Dosing 31.7 ml/min eGFR 36.54 BUN/Creatinine Ratio 22.4 H (10-20) Glucose 132 H (70-99(Fasting)) mg/dl Calcium 10.3 (8.6-10.3) mg/dl Total Bilirubin 1.2 H (0.2-1.0) mg/dl AST 31 (13-39) U/L ALT 43 (7-52) U/L Alkaline Phosphatase 64 (34-104) U/L Total Protein 7.3 (6.0-8.3) gm/dl Albumin 4.6 (3.4-5.0) gm/dl Globulin 2.7 (2.5-4.0) gm/dl Albumin/Globulin Ratio 1.7 (0.9-2) Lipase 57 (11-82) U/L Urine Color Yellow Urine Appearance Clear (Clear) Urine pH 6.0 (4.5-7.5) Ur Specific [place] 1.017 (1.000-1.030) Urine Protein Trace H (Negative) Urine Glucose (UA) Negative (Negative) Urine Ketones Trace H (Negative) Urine Blood 3+ H (Negative) Urine Nitrite Negative (Negative) Urine Bilirubin Negative (Negative) Urine Urobilinogen Negative (Negative) Ur Leukocyte Esterase 2+ H (Negative) Urine WBC (Auto) 11-20 H (0-5) /hpf Urine RBC (Auto) >20 H (0-2) /hpf U Hyaline Cast (Auto) 0-2 (0-2) /lpf U Epithel Cells (Auto) 0-2 (0-2) /hpf Urine Bacteria (Auto) None Seen (None Seen) Urine Comment Imaging Data Radiologist's Impression: Abdomen/Pelvis CT 03/26/25 08:07 EXAM: CT Abdomen and Pelvis Without Intravenous Contrast INDICATION: Left lower quadrant pain radiating to the back. Intermittent vomiting. TECHNIQUE: Axial computed tomography images of the abdomen and pelvis without intravenous contrast. Sagittal and coronal reformatted images were created and reviewed. This CT exam was performed using one or more of the following dose reduction techniques: automated exposure control, adjustment of the mA and/or kV according to patient size, and/or use of iterative reconstruction technique. COMPARISON: No relevant prior studies available. FINDINGS: Limitations: None. Lung bases: Mild basilar atelectasis. Pleural space: No visualized pleural effusion or pneumothorax. Heart: No abnormality noted. Mediastinum: No abnormality noted. ABDOMEN: Liver: Lack of intravenous contrast limits detection of some masses. No abnormality noted. Gallbladder and bile ducts: Sludge layers in the gallbladder. No calcified stones noted. No ductal dilatation. Pancreas: There is volume averaging with adjacent fat in the tail. No mass, ductal dilatation, inflammation or surrounding fluid. No gas in the pancreatic bed. Spleen: No significant abnormality noted. Adrenals: 1.7 cm diameter low-density left adrenal nodule. Right appears normal. Kidneys and ureters: There is mild to moderate left hydroureteronephrosis and perinephric and periureteral edema. There is a 4 mm stone in the left ureter at the level of the upper left SI joint. 2 mm nonobstructing stone in the left kidney. Faint calcifications lower pole right kidney. Tiny right lower pole cortical cyst for which no further assessment required. Stomach and bowel: Partial right colectomy. Moderate amounts of stool in the redundant colon. No obstruction. No inflammatory process. PELVIS: Appendix: Appendectomy. Bladder: Appears normal for the degree of filling. No stones or inflammation. No large mass. Masses may not be detected in the absence of opacification. Reproductive: No abnormalities noted. ABDOMEN and PELVIS: Intraperitoneal space: No free air. No significant fluid collection. Bones/joints: Pectus excavatum deformity. Soft tissues: No significant abnormality noted. Vasculature: Atherosclerotic calcification of the aorta and branches. No aneurysm. Lymph nodes: No pathologically enlarged lymph nodes. IMPRESSION: 1. 4 mm left ureteral stone at the level of the proximal SI joint with mild to moderate hydronephrosis. 2. Sludge in the gallbladder. 3. Moderate amounts of formed stool in the redundant colon. No obstruction. ACT 112: N/A Electronically signed by Mohini Mckeon 03-26-2025 08:56 AM MDM Narrative Patient was seen and evaluated as above in room A11b. Review was performed of triage nursing notes and vital signs. I did review pertinent previous visits and patient history. After obtaining a thorough history and physical examination the above work up was performed. Patient presents to us today for evaluation of left lower quadrant abdominal pain. She does have associated nausea and vomiting. She is tender in the left lower quadrant. There is no guarding or rigidity. The patient is afebrile. Hypertensive, otherwise vital signs are stable. Options of care were discussed with the patient. IV access was established. Labs were drawn. I did recommend a CT scan of the abdomen/pelvis to further assess. The patient is apprehensive to undergo IV contrast. I will note CKD documented in the EMR. I had a thorough discussion with the patient regarding benefit versus risk of CT scan abdomen/pelvis with or without contrast. At this time we agreed to proceed without contrast. CT scan result is as above. The patient has a 4 mm left ureteral stone at the level of the proximal SI joint with mild to moderate hydronephrosis. Sludge in the gallbladder. Stool noted as well. The presentation is most consistent with that of the obstructing stone. The patient did request analgesia and was given IV morphine x 2. No relief. Pain continues to build. Dilaudid verbal order given to Hien Pratt RN. It was felt that the benefit of the med outweighed risk. Zofran administered as well. IV fluids ordered. Patient had a brief desaturation of oxygen into the 80s and was promptly started on mild supplemental O2 and rebounded nicely into the 90s. No complications. Patient's pain did return. After enough time was felt to have passed, additional analgesia was ordered and oxygen continued to be closely monitored. With the patient's continued pain and findings today, I do believe that further evaluation and management in inpatient setting is warranted. I discussed the case with the hospitalist service, Dr. Lawrence. He does ask that I discuss with urology as well. I also discussed the case with Dr. Cox, urology. Please refer the documentation regarding her stay. GCS: 15 In the evaluation and treatment of this patient the following differential diagnoses were entertained: UTI, pyelonephritis, diverticulitis, perforation, abscess, kidney stone, among others Impression & Plan Abdominal pain, left lower quadrant, Calculus of distal left ureter, Hydronephrosis Discharge Plan Visit Data Chief Complaint: Abdominal Pain Stated Complaint: LOWER L ABD PAIN ED Provider: Breana Degroot ED Midlevel Provider: Bamat,Gaurav W Discharge Problem: Abdominal pain, left lower quadrant, Calculus of distal left ureter, Hydronephrosis Patient Disposition: Admitted As Inpatient Condition: Good Discharge Instructions Interventions: ED Discharge Assessment Last Done: 03/26/25 12:25
--- NOTE | 2025-03-26 08:12 | Emergency Department Note ---
ED Visit Note I was consulted by the Advanced Practice Provider, Gaurav Griggs PA-C. I performed a substantive portion of the visit. This includes aspects of: History: Patient is a 79-year-old female presenting with left lower quadrant abdominal pain. Patient reports that she started having pain a week ago but pain resolved on its own and then today at 5 AM woke up with sudden sharp onset of left lower quadrant abdominal pain. She has had associated nausea and vomiting. MDM: Laboratory workup in the emergency department was any for any acute abnormality. CT imaging showed a 4 mm stone in left distal ureter. Patient was given pain medication in the emergency department. She was given 2 doses of morphine with no relief and was given a small dose of Dilaudid. However, shortly after Dilaudid dose and she became hypoxic. Patient to be admitted to hospitalist service. .
[2025-03-26 08:26] LABS: Hematocrit (blood only) 42.8 % (37.0-47.0); Hemoglobin 14.6 g/dl (12.0-16.0); Immature Granulocytes # (auto) 0.02 K/uL (0.01-0.20); Immature Granulocytes % (auto) 0.2 %; Mean Corpuscular Hemoglobin 31.3 pg (25.0-34.0); Mean Corpuscular Volume 91.6 fL (80.0-100.0); Platelet Count 174 K/uL (130-400); RDW Standard Deviation 42.5 fL (36.4-46.3); Red Blood Count 4.67 M/uL (4.20-5.40); White Blood Count 8.95 K/ul (4.8-10.8)
[2025-03-26 08:46] LABS: Alanine Aminotransferase 43.0 U/L (7-52); Albumin Globulin Ratio 1.7 (0.9-2); Alkaline Phosphatase 64.0 U/L (34-104); Anion Gap 13.0 (3-11); Bilirubin,Total 1.2 mg/dl (0.2-1.0); Blood Urea Nitrogen 33.0 mg/dl (6-23); Calcium 10.3 mg/dl (8.6-10.3); Carbon Dioxide 20.0 mmol/L (21-32); Chloride 107.0 mmol/L (98-107); Creatinine Clr Calc Pharmacy 31.7 ml/min; Globulin 2.7 gm/dl (2.5-4.0); Glucose 132.0 mg/dl (70-99(Fasting)); Lipase 57.0 U/L (11-82); Potassium 3.6 mmol/L (3.5-5.1); Sodium 140.0 mmol/L (136-145); Total Protein 7.3 gm/dl (6.0-8.3)
[2025-03-26] MEDS: ONDANSETRON INJ 2 MG/ML 2 ML VIAL IV STA ×2 (08:54→10:03)
[2025-03-26] MEDS: MoRPHine SULFATE 2 MG/ML CARP IV STA ×3 (08:55→10:37)
--- NOTE | 2025-03-26 08:57 | CT Scan Report ---
EXAM: CT Abdomen and Pelvis Without Intravenous Contrast INDICATION: Left lower quadrant pain radiating to the back. Intermittent vomiting. TECHNIQUE: Axial computed tomography images of the abdomen and pelvis without intravenous contrast. Sagittal and coronal reformatted images were created and reviewed. This CT exam was performed using one or more of the following dose reduction techniques: automated exposure control, adjustment of the mA and/or kV according to patient size, and/or use of iterative reconstruction technique. COMPARISON: No relevant prior studies available. FINDINGS: Limitations: None. Lung bases: Mild basilar atelectasis. Pleural space: No visualized pleural effusion or pneumothorax. Heart: No abnormality noted. Mediastinum: No abnormality noted. ABDOMEN: Liver: Lack of intravenous contrast limits detection of some masses. No abnormality noted. Gallbladder and bile ducts: Sludge layers in the gallbladder. No calcified stones noted. No ductal dilatation. Pancreas: There is volume averaging with adjacent fat in the tail. No mass, ductal dilatation, inflammation or surrounding fluid. No gas in the pancreatic bed. Spleen: No significant abnormality noted. Adrenals: 1.7 cm diameter low-density left adrenal nodule. Right appears normal. Kidneys and ureters: There is mild to moderate left hydroureteronephrosis and perinephric and periureteral edema. There is a 4 mm stone in the left ureter at the level of the upper left SI joint. 2 mm nonobstructing stone in the left kidney. Faint calcifications lower pole right kidney. Tiny right lower pole cortical cyst for which no further assessment required. Stomach and bowel: Partial right colectomy. Moderate amounts of stool in the redundant colon. No obstruction. No inflammatory process. PELVIS: Appendix: Appendectomy. Bladder: Appears normal for the degree of filling. No stones or inflammation. No large mass. Masses may not be detected in the absence of opacification. Reproductive: No abnormalities noted. ABDOMEN and PELVIS: Intraperitoneal space: No free air. No significant fluid collection. Bones/joints: Pectus excavatum deformity. Soft tissues: No significant abnormality noted. Vasculature: Atherosclerotic calcification of the aorta and branches. No aneurysm. Lymph nodes: No pathologically enlarged lymph nodes. IMPRESSION: 1. 4 mm left ureteral stone at the level of the proximal SI joint with mild to moderate hydronephrosis. 2. Sludge in the gallbladder. 3. Moderate amounts of formed stool in the redundant colon. No obstruction. ACT 112: N/A Electronically signed by Mohini Mckeon 03-26-2025 08:56 AM
[2025-03-26] MEDS: SODIUM CHLORIDE 0.9% 1,000 ML IV ONE (09:06)
[2025-03-26] MEDS: HYDROmorphone INJ 0.5 MG/0.5 ML SYR ONE (09:21)
[2025-03-26] MEDS: HYDROmorphone INJ 0.5 MG/0.5 ML SYR IV STA ×2 (09:50→12:42)
[2025-03-26 10:19] LABS: Appearance Urine Clear (Clear); Bacteria Urine Automated None Seen (None Seen); Cast Urine Automated 0-2 /lpf (0-2); Epithelial Cell Urine Auto 0-2 /hpf (0-2); Glucose Urine UA Negative (Negative); RBC Urine Automated >20 /hpf (0-2)
--- NOTE | 2025-03-26 10:49 | History & Physical Report ---
Date of Service March 26, 2025 Assessment & Plan (1) Hydronephrosis: Plan: Patient with left hydronephroses and calculus of distal left ureter. Patient will be admitted for ureteral stent placement. ordered pain control. (2) Calculus of distal left ureter: Plan: as stated above. (3) Benign secondary hypertension: Plan: resumed home meds. BP at goal. (4) Hypercholesterolemia: Plan: continue statin (5) Hypothyroidism: Plan: continue levothyroxine History of Present Illness Chief Complaint: LLQ abd. pain Primary Care Provider: Esau Funez, FIFI, PACO Patient is a 79 yo female who presents to the hospital with left lower quadrant abdominal pain. Patient sttaes that this pain began about one week ago at a moderate intensity. However it resolved on its own. This AM patient was awoking by this same pain, however this time it was accompan ied by N/V and the intensity was severe. Allergies Allergy/AdvReac Type Severity Reaction Status Date / Time Penicillins Allergy Unknown Rash Verified 03/26/25 09:48 ciprofloxacin [From Cipro] Allergy Verified 03/26/25 09:48 clindamycin Allergy Rash Verified 03/26/25 09:48 codeine Allergy Irritabilit Verified 03/26/25 09:48 y latex Allergy Verified 03/26/25 09:48 bacitracin [From Polysporin] AdvReac Verified 03/26/25 09:48 Home Medications Medication Instructions Recorded Confirmed Type krill oil 500 mg capsule 1,000 mg PO DAILY 09/21/20 03/26/25 History aspirin 81 mg tablet,delayed 81 mg PO DAILY #30 tabs 11/21/20 03/26/25 Rx release coenzyme Q10 100 mg capsule 200 mg PO QPM 03/26/22 03/26/25 History spironolactone 25 mg tablet 25 mg PO BID #180 tabs 04/04/24 03/26/25 Rx levomefolate 500 mcg-niacinamide 1 tab PO DAILY #30 tabs 05/20/24 03/26/25 Rx 750 im-nqbklv-Zx-selen-chrom tablet (Nicotinamide (with chromium)) levothyroxine 75 mcg tablet 75 mcg PO DAILY #90 tabs 02/07/25 03/26/25 Rx (Synthroid) atorvastatin 80 mg tablet 80 mg PO HS 03/26/25 03/26/25 History clonidine HCl 0.3 mg tablet 0.3 mg PO QPM 03/26/25 03/26/25 History multivitamin 1 tab PO DAILY 03/26/25 03/26/25 History sulfamethoxazole 800 1 tab PO BID #6 tabs 03/27/25 Rx mg-trimethoprim 160 mg tablet (Bactrim DS) Past Med/Surg History Problem List Hydronephrosis (Acute) Calculus of distal left ureter (Acute) Abdominal pain, left lower quadrant (Acute) Calcium nephrolithiasis Raynauds phenomenon BRAO (branch retinal artery occlusion) Vision loss (Acute) Benign secondary hypertension (Chronic) Hypercholesterolemia (Chronic) Hypothyroidism (Chronic) SNHL (sensorineural hearing loss) (Chronic) Stage III chronic kidney disease (Chronic) Hyperaldosteronism (Chronic) Medical History 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 CVA (cerebral vascular accident) Postmenopausal bleeding Benign colonic polyp Basal cell carcinoma Primary aldosteronism Surgical History History of excision of lesion (~2014) scalp-benign History of colonoscopy with polypectomy Family History Aunt Breast cancer paternal aunt Ovarian cancer maternal aunt Uncle Colorectal cancer maternal uncle Brother Hemochromatosis Liver disease Sister Ovarian cancer Mother Stroke Hypertension Pulmonary embolism Denies family history of Prostate cancer Diabetes Myocardial infarction Ulcerative colitis Asthma Social History Smoking Status: Never smoker Second Hand Exposure: No; Do You Dip or Chew Tobacco: No; Hx Alcohol Use: No Hx Substance Use: No Preferred Language: Occitan Communication Ability: Effective Visual Impairment: No Limitations Hearing Ability: Normal Jig Worker Required: No Beliefs That Will Affect Care: None marital status: Current Living Situation: Spouse current occupational status: retired How many Children do You have: 2 Feels Safe at Home: Yes Childhood Exposure to Second-Hand Smoke: No Diet: regular caffeine: No during the past year weight has: remained stable Dental Care, Regularly: Yes Physical Activity Frequency: Daily Seatbelt Use: always Sunscreen Use: No Assistive Devices: Glasses Review of Systems Constitutional: no fever and no body aches Eyes: no blind spots Ear, Nose, Mouth, Throat: no ear pain Respiratory: no cough Cardiovascular: no chest pain Gastrointestinal: + abdominal pain Genitourinary: no dysuria Musculoskeletal: no back pain Integumentary: no acne Neurologic: no gait abnormality Psychiatric: no behavioral changes Endocrine: no fatigue Hematologic / Lymphatic: no easy bleeding Allergy / Immunological: no GI upset with certain foods Physical Exam Constitutional: WD/WN, vitals as above Eyes: PERRL, conjunctivae normal, anicteric sclerae ENMT: external ear and nose normal, oropharynx normal Neck: trachea midline, no thyromegaly Respiratory: normal respiratory effort, lungs clear to auscultation Cardiovascular: RRR, no murmur, no edema Gastrointestinal (Abdomen): normal bowel sounds, soft, nontender, no hepatosplenomegaly Musculoskeletal: no cyanosis or clubbing, extremities motor strength 5/5 Skin: no rashes, warm and dry Neurologic: PERRL, EOMI, accommodation nl, no face palsy, no dysarthria Psychiatric: A+Ox3, euthymic affect Lymphatic: no cervical or axillary lymphadenopathy Results & Data Results & Data Vital Signs (Past 12 Hours) Vital Signs Temp Pulse Pulse Resp BP BP Pulse Ox 03/26/25 10:07 97 03/26/25 10:00 56 L 18 172/95 H 97 03/26/25 09:43 55 L 16 97 03/26/25 09:39 80 L 03/26/25 08:57 76 26 H 167/110 H 100 03/26/25 08:55 70 03/26/25 08:14 36.4 C L 03/26/25 07:53 78 20 196/93 H 99 O2 Del Method O2 Flow Rate 03/26/25 10:07 Nasal Cannula 4 03/26/25 10:00 Nasal Cannula 3 03/26/25 09:43 Nasal Cannula 4 03/26/25 09:39 Room Air, Nasal Cannula 0 03/26/25 08:57 03/26/25 08:55 03/26/25 08:14 03/26/25 07:53 Room Air PG Care Time/CCT Total # of Minutes Spent Total Time Spent with Patient: Total time spent is greater than 50% in coordination of care (as documented) at patient's floor/unit and/or counseling patient: Coding Level of Care Code 99365 INT INP/OBS CARE MIN Diagnoses Hydronephrosis N13.30 Calculus of distal left ureter N20.1 Benign secondary hypertension I15.9 Hypercholesterolemia E78.00 Acquired hypothyroidism E03.9 Hypothyroidism type: acquired (5) Hypothyroidism Hypothyroidism type: acquired Qualified Code(s): E03.9 - Hypothyroidism, unspecified
--- NOTE | 2025-03-26 11:50 | Urology Consultation ---
Date of Consultation March 26, 2025 Assessment & Plan (1) Calcium nephrolithiasis: Plan Admitted through the emergency room secondary to an obstructing left ureteral calculus Risks benefits, expectations reviewed regarding ureteral stent placement Given her significant discomfort, I think it would be in her best interest to move forward with this and she is in agreement I did discuss that she will need to return at a later date for definitive stone surgery I also discussed the alternatives of trying to pass this stone or considering outpatient management with a solitary surgery either as ESWL or ureteroscopy She is in favor of moving forward with a stent today with the hope of obtaining relief of her symptoms History of Present Illness History of Present Illness 79-year-old female without a history of prior nephrolithiasis presenting to the ER today with severe left flank pain and associated nausea and vomiting Afebrile No leukocytosis Creatinine mildly elevated from baseline Remains quite uncomfortable despite efforts in the emergency room for pain control She is nontoxic and does not appear to be septic Allergies Allergy/AdvReac Type Severity Reaction Status Date / Time Penicillins Allergy Unknown Rash Verified 03/26/25 09:48 ciprofloxacin [From Cipro] Allergy Verified 03/26/25 09:48 clindamycin Allergy Rash Verified 03/26/25 09:48 codeine Allergy Irritabilit Verified 03/26/25 09:48 y latex Allergy Verified 03/26/25 09:48 bacitracin [From Polysporin] AdvReac Verified 03/26/25 09:48 Home Medications Medication Instructions Recorded Confirmed Type krill oil 500 mg capsule 1,000 mg PO DAILY 09/21/20 03/26/25 History aspirin 81 mg tablet,delayed 81 mg PO DAILY #30 tabs 11/21/20 03/26/25 Rx release coenzyme Q10 100 mg capsule 200 mg PO QPM 03/26/22 03/26/25 History spironolactone 25 mg tablet 25 mg PO BID #180 tabs 04/04/24 03/26/25 Rx levomefolate 500 mcg-niacinamide 1 tab PO DAILY #30 tabs 05/20/24 03/26/25 Rx 750 zu-sybmua-Nk-selen-chrom tablet (Nicotinamide (with chromium)) levothyroxine 75 mcg tablet 75 mcg PO DAILY #90 tabs 02/07/25 03/26/25 Rx (Synthroid) atorvastatin 80 mg tablet 80 mg PO HS 03/26/25 03/26/25 History clonidine HCl 0.3 mg tablet 0.3 mg PO QPM 03/26/25 03/26/25 History multivitamin 1 tab PO DAILY 03/26/25 03/26/25 History Patient History Medical History 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 CVA (cerebral vascular accident) Postmenopausal bleeding Benign colonic polyp Basal cell carcinoma Primary aldosteronism Surgical History History of excision of lesion (~2014) scalp-benign History of colonoscopy with polypectomy Family History Aunt Breast cancer Ovarian cancer Uncle Colorectal cancer Brother Hemochromatosis Liver disease Sister Ovarian cancer Mother Stroke Hypertension Pulmonary embolism Denies family history of Prostate cancer Diabetes Myocardial infarction Ulcerative colitis Asthma Social History Smoking Status: Never smoker Second Hand Exposure: No; Do You Dip or Chew Tobacco: No; Hx Alcohol Use: No Hx Substance Use: No Preferred Language: Slovak Communication Ability: Effective Visual Impairment: No Limitations Hearing Ability: Normal Tie In Hand Required: No Beliefs That Will Affect Care: None marital status: Current Living Situation: Spouse current occupational status: retired How many Children do You have: 2 Feels Safe at Home: Yes Childhood Exposure to Second-Hand Smoke: No Diet: regular caffeine: No during the past year weight has: remained stable Dental Care, Regularly: Yes Physical Activity Frequency: Daily Seatbelt Use: always Sunscreen Use: No Assistive Devices: Glasses Review of Systems Constitutional: no fever, no chills and no fatigue Eyes: no worsening vision Ear, Nose, Mouth, Throat: no facial pain and no pain with swallowing Respiratory: no cough and no dyspnea Cardiovascular: no chest pain and no palpitations Gastrointestinal: no abdominal pain, no nausea and no vomiting Genitourinary: no dysuria, no difficulty urinating, no urinary frequency and no hematuria Musculoskeletal: no back pain Integumentary: no rash and no urticaria Neurologic: no gait abnormality and no unsteadiness Psychiatric: no behavioral changes and no depression Endocrine: no fatigue Physical Exam Physical Exam: Uncomfortable appearing with mild discomfort in the left flank Constitutional: well developed and well nourished Neck: neck nontender Respiratory: normal respiratory effort; no respiratory distress and does not use accessory muscles Cardiovascular: Rate/Rhythm: regular rate Vessels: radial pulses present Extremities: no edema Gastrointestinal (Abdomen): Inspection/Auscultation: abdomen normal to inspection Percussion/Palpation: abdomen soft; abdomen nontender and no guarding Musculoskeletal: Head/Neck/Chest: normocephalic and head atraumatic Extremities: extremities normal to inspection Skin: no rashes and no lesions Trauma: no evidence of skin trauma Neurologic: awake; not obtunded Speech / Cognition: normal speech Motor/Sensory: no tremor Psychiatric: Orientation: alert and oriented x 3 Lymphatic: no lymphadenopathy Results & Data Vital Signs (Past 12 Hours) Vital Signs Temp Pulse Pulse Resp BP BP Pulse Ox 03/26/25 10:07 97 03/26/25 10:00 56 L 18 172/95 H 97 03/26/25 09:43 55 L 16 97 03/26/25 09:39 80 L 03/26/25 08:57 76 26 H 167/110 H 100 03/26/25 08:55 70 03/26/25 08:14 36.4 C L 03/26/25 07:53 78 20 196/93 H 99 O2 Del Method O2 Flow Rate 03/26/25 10:07 Nasal Cannula 4 03/26/25 10:00 Nasal Cannula 3 03/26/25 09:43 Nasal Cannula 4 03/26/25 09:39 Room Air, Nasal Cannula 0 03/26/25 08:57 03/26/25 08:55 03/26/25 08:14 03/26/25 07:53 Room Air PG Care Time/CCT Total # of Minutes Spent Total Time Spent with Patient: Total time spent is greater than 50% in coordination of care (as documented) at patient's floor/unit and/or counseling patient: Coding Level of Care Code 92879 INT INP/OBS CARE 140MIN Diagnoses Calcium nephrolithiasis N20.0
--- NOTE | 2025-03-26 11:52 | Anesthesiology Consultation ---
Date of Service March 26, 2025 Assessment & Plan Chart Review Chart Review: Acceptable Risk for Surgery and Patient NOT seen in Pre Admission Testing Consults Requested none ASA [id number] Proposed Anesthesia Anesthesia Type: MAC History Surgery Operation Date: 03/26/25 11:30 Proposed Procedures p Cystoscopy - Ras Cox MD s Ureteral Stent Insertion(Left) - Ras Cox MD Height/Weight Height: 5 ft 5 in Weight: 71.3 kg Allergies Allergy/AdvReac Type Severity Reaction Status Date / Time Penicillins Allergy Unknown Rash Verified 03/26/25 09:48 ciprofloxacin [From Cipro] Allergy Verified 03/26/25 09:48 clindamycin Allergy Rash Verified 03/26/25 09:48 codeine Allergy Irritabilit Verified 03/26/25 09:48 y latex Allergy Verified 03/26/25 09:48 bacitracin [From Polysporin] AdvReac Verified 03/26/25 09:48 Medications Home Medications Medication Instructions Recorded Confirmed Last Taken krill oil 500 mg capsule 1,000 mg PO DAILY 09/21/20 03/26/25 Unknown aspirin 81 mg tablet,delayed 81 mg PO DAILY #30 tabs 11/21/20 03/26/25 Unknown release coenzyme Q10 100 mg capsule 200 mg PO QPM 03/26/22 03/26/25 Unknown spironolactone 25 mg tablet 25 mg PO BID #180 tabs 04/04/24 03/26/25 Unknown levomefolate 500 mcg-niacinamide 1 tab PO DAILY #30 tabs 05/20/24 03/26/25 Unknown 750 em-qfoeyp-Of-selen-chrom tablet (Nicotinamide (with chromium)) levothyroxine 75 mcg tablet 75 mcg PO DAILY #90 tabs 02/07/25 03/26/25 Unknown (Synthroid) atorvastatin 80 mg tablet 80 mg PO HS 03/26/25 03/26/25 Unknown clonidine HCl 0.3 mg tablet 0.3 mg PO QPM 03/26/25 03/26/25 Unknown multivitamin 1 tab PO DAILY 03/26/25 03/26/25 Unknown Past Medical History Medical History Acute right REHABILITATION LIAISON stroke CVA (cerebral vascular accident) Postmenopausal bleeding Benign colonic polyp Basal cell carcinoma Primary aldosteronism Raynaud's HTN HLD Hypothyroidism CKD 3 Vision loss 2ndary to Branch Retinal Artery Occlusion JENNIFER Exercise / Class Metabolic Activity III < 4 Walking/Shop/Light housework Past Family History Family History Aunt Breast cancer paternal aunt Ovarian cancer maternal aunt Uncle Colorectal cancer maternal uncle Brother Hemochromatosis Liver disease Sister Ovarian cancer Mother Stroke Hypertension Pulmonary embolism Denies family history of Prostate cancer Diabetes Myocardial infarction Ulcerative colitis Asthma Past Surgical History Surgical History History of excision of lesion (~2014) scalp-benign History of colonoscopy with polypectomy Past Anesthesia History No Hx of Anesthesia Complications and No Family Hx of Anesthesia Complications History of PONV No Hx of PONV and No Hx of Motion Sickness Social History Smoking Status: Never smoker Do You Dip or Chew Tobacco: No Hx Alcohol Use: No Hx Substance Use: No Physical Exam Vital Signs Last Vital Signs Temp 36.4 C L 03/26/25 08:14 Pulse 56 L 03/26/25 10:00 Resp 18 03/26/25 10:00 BP 172/95 H 03/26/25 10:00 Pulse Ox 97 03/26/25 10:07 O2 Del Method Nasal Cannula 03/26/25 10:07 O2 Flow Rate 4 03/26/25 10:07 Testing Laboratory Results 03/26/25 08:05 03/26/25 08:05 Urine Color Yellow 03/26/25 10:04 Urine Appearance Clear (Clear) 03/26/25 10:04 Urine pH 6.0 (4.5-7.5) 03/26/25 10:04 Ur Specific [place] 1.017 (1.000-1.030) 03/26/25 10:04 Urine Protein Trace (Negative) H 03/26/25 10:04 Urine Glucose (UA) Negative (Negative) 03/26/25 10:04 Urine Ketones Trace (Negative) H 03/26/25 10:04 Urine Nitrite Negative (Negative) 03/26/25 10:04 Ur Leukocyte Esterase 2+ (Negative) H 03/26/25 10:04 Urine WBC (Auto) 11-20 /hpf (0-5) H 03/26/25 10:04 Urine RBC (Auto) >20 /hpf (0-2) H 03/26/25 10:04 U Hyaline Cast (Auto) 0-2 /lpf (0-2) 03/26/25 10:04 U Epithel Cells (Auto) 0-2 /hpf (0-2) 03/26/25 10:04 Urine Bacteria (Auto) None Seen (None Seen) 03/26/25 10:04 Electrocardiogram Date: 11/13/23 Findings: + NSR @ (@81;IRBBB;LAD), + LVH and + NSST changes Echocardiogram Date: 07/31/20 EF: 60% LV Function: normal RWMA: + none Other Findings: + LVH Valvular Disease: + no significant valvular disease mild TR Other Testing 07/30/2020-Carotid U/S-< 50%
[2025-03-26] MEDS ORDERED: KETOROLAC 30 MG/ML VIAL ONE (12:12)
[2025-03-26] MEDS ORDERED: ONDANSETRON INJ 2 MG/ML 2 ML VIAL ONE (12:12)
[2025-03-26] MEDS ORDERED: DexMEDEtomidine HCL IV 100 MCG/ML VIAL IV ONE (12:12)
[2025-03-26] MEDS ORDERED: PROPOFOL IV EMULSION 10 MG/ML 20 ML VIAL IV ONE (12:12)
[2025-03-26] MEDS ORDERED: LIDOCAINE 2% 2 ML VIAL/AMP(20MG/ML) INFIL ONE (12:12)
[2025-03-26] MEDS ORDERED: HYDROmorphone INJ 0.5 MG/0.5 ML SYR IV PRN ×2 (12:43→16:47)
[2025-03-26] MEDS ORDERED: FLUMAZENIL 0.1 MG/1 ML 10 ML VIAL IV PRN (13:52)
[2025-03-26] MEDS ORDERED: NALOXONE HCL 0.4 MG/1 ML VIAL/CARP IV PRN (13:52)
[2025-03-26] MEDS ORDERED: ONDANSETRON INJ 2 MG/ML 2 ML VIAL IV PRN (13:52)
[2025-03-26] MEDS ORDERED: ATROPINE SULFATE 0.1 MG/ML 10ML SYR IV PRN (13:52)
[2025-03-26] MEDS ORDERED: PROMETHAZINE HCL 6.25 MG in SODIUM CHLORIDE 0.9% 50 ML IV PRN (13:52)
--- NOTE | 2025-03-26 14:40 | Operative Report ---
PG Post Operative Report Pre & Post Diagnosis Operation Date: 03/26/25 11:30 Pre-Op Diagnosis: Left ureteral stone Post-Op Diagnosis: Left ureteral stone I identified the patient and participated in the time-out.: Yes Procedure Operation Date: 03/26/25 11:30 Actual Procedures p Cystoscopy(Not Applicable) - Ras Cox MD s Left Ureteral Stent Insertion(Left) - Ras Cox MD Surgeon Ras Cox MD Electrical Maintenance Engineer none Estimated Blood Loss 0 Findings Consistent with Post-Op Diagnosis Specimens none Description of Procedure The patient was identified in the preoperative holding area, appropriate informed consents were reviewed and completed and the patient was transferred to the operative suite. Upon arrival, appropriate antibiotics and anesthesia were administered and the patient was placed in dorsal lithotomy position and prepped and draped in sterile fashion. Begin the case I passed a 21 Romanian cystoscope with 30 degree lens. 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 She has very minor anterior wall prolapse but I was able to easily identify the ureteral orifices in orthotopic position. There were some blood in the dependent portion of the bladder upon entry. I was able to visualize a small amount of blood coming from the left UO upon entry as well. There were no tumors or other abnormalities throughout the bladderconfirmed with a full 360 degree inspection. I then turned my attention to the left UO. I cannulated it with a sensor wire and met resistance in the proximal/mid ureter. This was consistent with the location of the stone. I was able to navigate the wire beyond the stone and into the kidney without difficulty. Immediately upon passage of the wire there was a discharge of old urine from the left collecting system. I proceeded to place a 6 Romanian by 24 cm double-J stent seen good curl in the kidney as well as the bladder. Urine was draining through and around the stent after deployment. She was reversed of anesthesia and taken to the recovery room in stable condition. She will need to return for definitive stone surgery in the next several weeks. I attest to the content of the Intraoperative Record and any orders documented therein. Any exceptions are noted below.
--- NOTE | 2025-03-26 15:04 | Anesthesiology Progress Note ---
Date of Service March 26, 2025 Anesthesia Post Procedure Vital Signs Vital Signs: Temp Pulse Pulse Pulse Resp BP BP 03/26/25 14:55 36.4 C L 54 L 18 121/60 03/26/25 14:45 58 L 23 125/65 03/26/25 14:37 36.1 C L 63 20 117/69 03/26/25 12:11 03/26/25 12:03 36.3 C L 59 L 18 180/83 H 03/26/25 10:07 03/26/25 10:00 56 L 18 03/26/25 09:43 55 L 16 03/26/25 09:39 03/26/25 08:57 76 26 H 167/110 H 03/26/25 08:55 70 03/26/25 08:14 36.4 C L 03/26/25 07:53 78 20 196/93 H BP Pulse Ox O2 Del Method O2 Flow Rate 03/26/25 14:55 94 Nasal Cannula 4 03/26/25 14:45 99 Nasal Cannula 4 03/26/25 14:37 96 Nasal Cannula 4 03/26/25 12:11 Nasal Cannula 3 03/26/25 12:03 99 Nasal Cannula 3 03/26/25 10:07 97 Nasal Cannula 4 03/26/25 10:00 172/95 H 97 Nasal Cannula 3 03/26/25 09:43 97 Nasal Cannula 4 03/26/25 09:39 80 L Room Air, Nasal Cannula 0 03/26/25 08:57 100 03/26/25 08:55 03/26/25 08:14 03/26/25 07:53 99 Room Air Pain Intensity Left Flank: Pain Intensity: 2 Transfer of Care Handoff Completed per policy Notes Mental Status: alert / awake / arousable Patient Amnestic to Procedure: Yes Nausea / Vomiting: adequately controlled Pain: adequately controlled Airway Patency, RR, SpO2: stable & adequate BP & HR: stable & adequate Hydration State: stable & adequate Anesthetic Complications: no major complications apparent
[2025-03-26] MEDS ORDERED: GENTAMICIN CONSULT ACTIVE PRN (15:16)
[2025-03-26] MEDS: SPIRONOLACTONE 25 MG TAB PO SCH (16:09)
[2025-03-26] MEDS: GENTAMICIN SULFATE IV SCH (16:16)
[2025-03-26] MEDS: DEXTROSE 5% IV SCH (16:16)
[2025-03-26] MEDS: ATORVASTATIN 40 MG TAB PO SCH (20:10)
[2025-03-27] MEDS: LEVOTHYROXINE SODIUM 75 MCG TABLET PO SCH (05:49)
[2025-03-27 07:07] VITALS: RESP 18; O2SAT 95
[2025-03-27 07:12] LABS: Hematocrit (blood only) 34.9 % (37.0-47.0); Hemoglobin 11.8 g/dl (12.0-16.0); Mean Corpuscular Hemoglobin 31.5 pg (25.0-34.0); Mean Corpuscular Volume 93.1 fL (80.0-100.0); Platelet Count 146 K/uL (130-400); RDW Standard Deviation 43.1 fL (36.4-46.3); Red Blood Count 3.75 M/uL (4.20-5.40); White Blood Count 6.42 K/ul (4.8-10.8)
[2025-03-27] MEDS: ASPIRIN 81 MG ECTAB PO SCH (07:28)
[2025-03-27] MEDS: MULTIVITAMIN TAB PO SCH (07:28)
[2025-03-27] MEDS: OMEGA-3 (PURIFIED FISH OIL) 1 GM CAP PO SCH (07:29)
[2025-03-27 07:32] LABS: Anion Gap 4.0 (3-11); Blood Urea Nitrogen 26.0 mg/dl (6-23); Calcium 9.1 mg/dl (8.6-10.3); Carbon Dioxide 25.0 mmol/L (21-32); Chloride 110.0 mmol/L (98-107); Creatinine Clr Calc Pharmacy 34.0 ml/min; Glucose 85.0 mg/dl (70-99(Fasting)); Potassium 4.2 mmol/L (3.5-5.1); Sodium 139.0 mmol/L (136-145)
[2025-03-27 07:42] VITALS: BP 110/70; PULSE 52; TEMP 97.9
--- NOTE | 2025-03-27 08:13 | Urology Progress Note ---
Date of Service March 27, 2025 Assessment & Plan (1) Hydronephrosis: (2) Calculus of distal left ureter: Plan: Patient is POD 1 from cystoscopy and left ureteral stent placement. Pain is resolved vital signs stable. Afebrile wbc 6.42, hgb 11.8, Cr 1.37 today down from 1.47 Discussed with kelly Solomon for discharge from urology standpoint. Will need follow up in the next several weeks for definitive stone treatment Will send in bactri x 3 days Admission and Anticipated Discharge Date Admission Date: March 26, 2025 Subjective 79 year old patient POD 1 from cystoscopy and left ureteral stent placement with Dr Cox. Doing well today. Denies pain. She does report hematuria. Physical Exam Constitutional: comfortable; no acute distress and not ill appearing Respiratory: normal respiratory effort; no respiratory distress and no labored breathing Gastrointestinal (Abdomen): Inspection/Auscultation: abdomen normal to inspection Genitourinary: no CVA tenderness Results & Data Vital Signs (Past 12 Hours) Vital Signs Temp Pulse Pulse Resp BP Pulse Ox O2 Del Method 03/27/25 07:35 36.6 C 52 L 18 110/70 95 Room Air 03/27/25 07:06 36.5 C 47 L 18 112/71 95 Room Air 03/27/25 03:51 36.4 C L 41 L 16 106/58 L 97 Room Air 03/26/25 23:03 36.5 C 48 L 16 117/70 96 Room Air PG Care Time/CCT Total # of Minutes Spent Total Time Spent with Patient: Total time spent is greater than 50% in coordination of care (as documented) at patient's floor/unit and/or counseling patient: Coding Level of Care Code 12773 SUB INP/OBS CARE 10/08MIN Diagnoses Hydronephrosis N13.30 Calculus of distal left ureter N20.1
--- NOTE | 2025-03-27 08:38 | Discharge Summary ---
Discharge Summary Date of Service March 27, 2025 Principal Dx & Hospital Course #1 = Principal Diagnosis (1) Hydronephrosis: Patient with left hydronephroses and calculus of distal left ureter. Patient will be admitted for ureteral stent placement. Pain improved after ureteral stent placed. Will followup with urology as an outpatient for stent removal. Pain management as noted below. Patient will be discharged with bactrim x 3 days for prophylaxis. (2) Calculus of distal left ureter: as stated above. (3) Benign secondary hypertension: resumed home meds. BP at goal. (4) Hypercholesterolemia: continue statin (5) Hypothyroidism: continue levothyroxine Admission HPI Per Admitting Provider Patient is a 79 yo female who presents to the hospital with left lower quadrant abdominal pain. Patient sttaes that this pain began about one week ago at a moderate intensity. However it resolved on its own. This AM patient was awoking by this same pain, however this time it was accompanied by N/V and the intensity was severe. Discharge Exam Constitutional WD/WN, vitals as above Eyes PERRL, conjunctivae normal, anicteric sclerae ENMT external ear and nose normal, oropharynx normal Neck trachea midline, no thyromegaly Respiratory normal respiratory effort, lungs clear to auscultation Cardiovascular RRR, no murmur, no edema Gastrointestinal (Abdomen) normal bowel sounds, soft, nontender, no hepatosplenomegaly Musculoskeletal no cyanosis or clubbing, extremities motor strength 5/5 Skin no rashes, warm and dry Neurologic PERRL, EOMI, accommodation nl, no face palsy, no dysarthria Psychiatric A+Ox3, euthymic affect Lymphatic no cervical or axillary lymphadenopathy Discharge Plan Discharge Items Patient Disposition: Home - Self-Care Reason For Visit: URETEROLITHIASIS Discharge Diagnosis: ureterolithiasis Condition on Discharge: Good Activity: Resume your previous activity Non-emergency contact: Primary Care Provider Call non-emergency contact if: you have any medication questions Follow-up/Referrals: Esau Funez III, CRNP [Primary Care Provider] - 04/04/25 9:20 am Diet: Regular Addtl Attending Provider Instructions: Discussed with kelly Solomon for discharge from urology standpoint. Will need follow up in the next several weeks for definitive stone treatment with Urology. Please continue bactrim x3 days. Pending Studies at Discharge: No Stand-Alone Forms: My [facility] [employer], Smoking Cessation Medications and DC Order Prescriptions: New sulfamethoxazole-trimethoprim [Bactrim DS] 800-160 mg tablet 1 tab PO BID Qty: 6 0RF Continued aspirin 81 mg tablet,delayed release (DR/EC) 81 mg PO DAILY Qty: 30 3RF levothyroxine [Synthroid] 75 mcg tablet 75 mcg PO DAILY Qty: 90 1RF krill oil 500 mg capsule 1,000 mg PO DAILY Patient Comments: take 2 400 mg caps PO in the am coenzyme Q10 100 mg capsule 200 mg PO QPM Nicotinamide (with chromium) 500 mcg- 750 mg tablet 1 tab PO DAILY Qty: 30 0RF multivitamin Tablet 1 tab PO DAILY atorvastatin 80 mg tablet 80 mg PO HS clonidine HCl 0.3 mg tablet 0.3 mg PO QPM No Action spironolactone 25 mg tablet 25 mg PO BID Qty: 180 3RF biotin 5,000 mcg PO DAILY vit C,L-Xb-dgqyh-lutein-zeaxan [PreserVision AREDS-2] PO DAILY Discharge Orders: Discharge Order (Routine); Ordered 03/27/25 Ordered By: Brennan Lawrence Admission Data Admit Date/Time: 03/26/25 10:36 Attending Provider: Brennan Lawrence Admit Provider: Brennan Lawrence Primary Care Provider: Esau Funez III Other Providers: Ras Cox Other Interventions: Discharge Summary Assessment (RN) Last Done: 03/27/25 08:55 Hospital Stay Data Consultations 03/26/25 10:31 ED Decision to Admit Stat 03/26/25 10:58 Consult Urology Routine Procedures Performed Operation Date: 03/26/25 11:30 Actual Procedures p Cystoscopy(Not Applicable) - Ras Cox MD s Left Ureteral Stent Insertion(Left) - Ras Cox MD Diagnostic Imagining Performed 03/26/25 FL KUB Routine 03/26/25 08:07 CT abd pelvis wo con Stat Pending Results Patient Have Any Pending Studies at Discharge: No Discharge Instructions Given to Patient (Per Discharging Provider) Discussed with kelly Solomon for discharge from urology standpoint. Will need follow up in the next several weeks for definitive stone treatment with Urology. Please continue bactrim x3 days. Total Time Total Time Spent Total Time Spent (In Minutes): 32 Coding Level of Care Code 45584 INP/OBS DISCH >30 MIN Diagnoses Hydronephrosis N13.30 Calculus of distal left ureter N20.1 Benign secondary hypertension I15.9 Hypercholesterolemia E78.00 Acquired hypothyroidism E03.9 Hypothyroidism type: acquired
[2025-03-27] MEDS ORDERED: [UNRECOGNIZED DRUG - OTHER] PO SCH (09:00)
--- NOTE | 2025-03-27 10:04 | Fluoroscopy Report ---
FL KUB CLINICAL HISTORY: LEFT STENT COMPARISON STUDY: None FLUOROSCOPY TIME: 9 seconds FLUOROSCOPY IMAGES: 2 EXPOSURE DOSE: 2 mGy FINDINGS: Fluoroscopy was provided for urologic procedure. IMPRESSION: Intraoperative fluoroscopy. ACT 112: Negative or not required by law. Electronically signed by: Roosevelt Smith M.D. 03/27/2025 10:02 AM
== END 2025-03-27 10:21 | disposition home or self-care (01) | DRG 661 ==
LOC: ED 07:48 → 3E 10:36 → INTOOBSV 10:36 → 3E 12:25